=== PATIENT | female | born 1940 | race Caucasian/White ===

== ENCOUNTER 2021-12-25 11:33 | Emergency (ER) | payer MEDICARE, OTHER, SELFPAY ==
[2021-12-25] VITALS (20 sets, daily range): BP systolic 99–122; BP diastolic 44–62; PULSE 54–78; RESP 18; TEMP 36.3; O2SAT 87–100; BMI 20.1
--- NOTE | 2021-12-25 12:22 | CRLHL7_ITS ---
For Patients: As a result of the Cures Act, medical imaging exams and procedure reports are released immediately into your electronic medical record. You may view this report before your referring provider. If you have questions, please contact your health care provider. INDICATION: Pneumonia COMPARISON: None TECHNIQUE: Single-view study FINDINGS: TUBES AND LINES: PICC line ending in the distal SVC. HEART AND MEDIASTINUM: Heart size normal. Slight leftward shift due to volume loss on the left. LUNGS AND PLEURAL SPACES: Masslike consolidation laterally in the left upper lobe as well as diffuse airspace opacity elsewhere in the left lung. This could be inflammatory, neoplastic or related to treated malignancy.The masslike opacity abuts the left pleural surface.No definite abnormality on the right OSSEOUS STRUCTURES: No definite bone destruction IMPRESSION: Masslike consolidation laterally in the left upper lobe abutting the left pleural surface. There is also diffuse airspace disease elsewhere in the left lung. This could be inflammatory, neoplastic or related to treated malignancy. No definite abnormality on the right. Dictated by Simon Anguiano MD @ 12/25/2021 1:39:22 PM (Electronically Signed)
--- NOTE | 2021-12-25 12:26 | ED.GENADULT ---
HPI - General Adult General Chief complaint: Nausea/Vomiting Stated complaint: From [facility] Time Seen by Provider: 12/25/21 11:56 History of Present Illness HPI narrative: 81-year-old woman presenting to the emergency department on recommendation from [facility] where she has been receiving an infusion for pneumonia of Ertapenem. Apparently has been treating this for 2 weeks now. Has been struggling with pneumonia for 2 months. Son went got her and brought her from [place]. I ask about edema and apparently that has improved markedly since receiving further cares here. She has not had a recent fever. Is not coughing. Is on oxygen and has a concentrator here. Last night started vomiting and says that that quit around 3:00 a.m. it is 12 30 in the afternoon now. Is not having any pain really although had been experiencing pain in left upper quadrant around the time of vomiting. Major complaint really seems to be that she is feeling quite weak. Per her son blood pressures at [facility] were 90/40. She is in the 1 teens systolic here with good map. Related Data Home Medications Medication Instructions Recorded Confirmed Lactobacillus acidophilus 10 mg PO DAILY 12/23/21 12/28/21 acetaminophen 500 mg capsule 500 mg PO Q6H PRN 12/23/21 12/28/21 albuterol 90 mcg/actuation aerosol 108 mcg inhalation Q4H 12/23/21 12/28/21 inhaler ascorbic acid (vitamin C) 500 mg 500 mg PO DAILY 12/23/21 12/28/21 capsule,extended release atorvastatin 40 mg tablet 40 mg PO QHS 12/23/21 12/28/21 calcium carbonate 600 mg calcium 600 mg PO DAILY 12/23/21 12/28/21 (1,500 mg) tablet cetirizine 10 mg capsule (All Day 10 mg PO DAILY PRN 12/23/21 12/28/21 Allergy (cetirizine)) cholecalciferol (vitamin D3) 25 25 mcg PO DAILY 12/23/21 12/28/21 mcg (1,000 unit) capsule ferrous sulfate 325 mg (65 mg 325 mg PO DAILY 12/23/21 12/28/21 iron) tablet fluoxetine 20 mg capsule 20 mg PO DAILY 12/23/21 12/28/21 fluticasone 250 mcg-salmeterol 50 1 inh inhalation BID 12/23/21 12/28/21 mcg/dose blistr powdr for inhalation (Advair Diskus) furosemide 20 mg tablet 20 mg PO DAILY 12/23/21 12/28/21 ipratropium 0.5 mg-albuterol 3 mg 3 ml inhalation QID PRN 12/23/21 12/28/21 (2.5 mg base)/3 mL nebulization soln melatonin 3 mg capsule 3 mg PO HS PRN 12/23/21 12/28/21 montelukast 10 mg tablet 10 mg PO DAILY 12/23/21 12/28/21 aspirin 81 mg tablet,delayed 81 mg PO DAILY 12/29/21 12/29/21 release (Adult Aspirin Regimen) potassium chloride 20 mEq 40 meq PO DAILY 12/29/21 12/29/21 tablet,extended release prednisone 10 mg tablet 10 mg PO DAILY 12/29/21 12/29/21 Previous Rx's Medication Instructions Recorded ertapenem 1 gram solution for 1 g IVPB Q24H 10 days #10 ea 12/31/21 injection omeprazole 20 mg capsule,delayed 20 mg PO DAILY #30 caps 12/31/21 release prednisone 20 mg tablet 40 mg PO DAILYWM #6 tabs 12/31/21 sodium chloride 0.9 % (flush) 5 ml IVF .FLUSH PRN 10 days #20 mL 12/31/21 (Normal Saline Flush 0.9 % injection syringe) Allergies Allergy/AdvReac Type Severity Reaction Status Date / Time levofloxacin Allergy Severe Anaphylaxis Verified 12/29/21 14:17 azithromycin Allergy Unknown Verified 12/28/21 19:52 Penicillins Allergy Unknown Verified 12/28/21 19:52 Sulfa (Sulfonamide Allergy Unknown Verified 12/28/21 19:52 Antibiotics) [facility] Medical History (Updated 01/02/22 @ 00:01 by ) ASCVD (arteriosclerotic cardiovascular disease) BCC (basal cell carcinoma) Carpal tunnel syndrome of left wrist CKD (chronic kidney disease) stage 3, GFR 30-59 ml/min COPD (chronic obstructive pulmonary disease) Cyst of kidney, acquired De Quervain's syndrome (tenosynovitis) Diarrhea DVT (deep venous thrombosis) Empyema lung Folliculitis Frequent falls Gastritis HCAP (healthcare-associated pneumonia) Hyperlipidemia Hypertension Lesion of left ulnar nerve Macrocytic anemia Multiple rib fractures On home oxygen therapy Peripheral vascular disease Pneumonia Precancerous lesion Pulmonary nodule Raynaud disease Rotator cuff tear Strep throat Subclavian artery stenosis, left Thyroid nodule Vomiting Weakness Surgical History (Updated 12/29/21 @ 14:25 by Maylin Dale MD) H/O colonoscopy H/O shoulder surgery H/O: hysterectomy History of coronary angioplasty with insertion of stent History of tonsillectomy Hx of appendectomy Previous back surgery Family History (Updated 12/29/21 @ 14:26 by Maylin Dale MD) Sister Cancer Diabetes Social History (Updated 12/28/21 @ 21:56 by Yolis Sharp MD) Smoking Status: Former smoker What tobacco products do you use: cigarettes Smoking quit date/years: >15 years ago Do you use any of these nicotine containing products: None Second hand tobacco smoke exposure: No How often do you have a drink containing alcohol: never How often do you have six or more drinks on one occasion: Never AUDIT-C Alcohol total score: 0 Non-prescribed substance use: denies use Caffeine: Yes (1-2 cups coffee daily) service: No Exam Narrative: Exam Narrative: Pleasant. NAD. Does not appear to be in any particular distress. Conversing easily. Breathing easily. Lungs there though have crepitus through the bilateral mid and lower lung romero. Lower extremities are with some degree of compression stockings are without edema. PICC line in the right arm without surrounding inflammatory changes or swelling. Appears to be moving all extremities without difficulty. No focal weakness. Is a little weak though to sit needing some assistance into position. Able to hold herself sitting. Cardiovascular with on this lower end of regular rate and rhythm. I would not have thought her to be bradycardic on my exam. Abdomen is protuberant soft and nontender. Normoactive bowel sounds. Const: Vital Signs, click to edit/add: Vital Signs - 24 hr 12/25/21 11:50 12/25/21 12:22 12/25/21 13:03 Temperature 97.4 F L Pulse Rate 55 L Pulse Rate [Right Pulse Oximeter] 57 L Respiratory Rate 18 Blood Pressure Blood Pressure [Le ft Upper Arm] 113/47 L Pulse Oximetry 100 98 98 Oxygen Delivery Me thod Nasal Cannula Nasal Cannula Oxygen Flow Rate 4 2 12/25/21 13:05 12/25/21 12:30 12/25/21 13:06 Temperature Pulse Rate 62 57 L Pulse Rate [Right Pulse Oximeter] Respiratory Rate Blood Pressure 104/44 L Blood Pressure [Le ft Upper Arm] Pulse Oximetry 99 98 99 Oxygen Delivery Me thod Nasal Cannula Nasal Cannula Nasal Cannula Oxygen Flow Rate 2 2 2 12/25/21 13:30 12/25/21 13:31 12/25/21 13:32 Temperature Pulse Rate 56 L 57 L 58 L Pulse Rate [Right Pulse Oximeter] Respiratory Rate Blood Pressure 99/54 L Blood Pressure [Le ft Upper Arm] Pulse Oximetry 100 100 100 Oxygen Delivery Me thod Nasal Cannula Nasal Cannula Nasal Cannula Oxygen Flow Rate 2 2 2 12/25/21 14:05 12/25/21 14:06 12/25/21 14:30 Temperature Pulse Rate 60 60 55 L Pulse Rate [Right Pulse Oximeter] Respiratory Rate Blood Pressure 122/52 L Blood Pressure [Le ft Upper Arm] Pulse Oximetry 87 L 92 98 Oxygen Delivery Me thod Nasal Cannula Nasal Cannula Nasal Cannula Oxygen Flow Rate 2 2 2 12/25/21 14:32 12/25/21 14:33 12/25/21 15:00 Temperature Pulse Rate 65 69 59 L Pulse Rate [Right Pulse Oximeter] Respiratory Rate Blood Pressure 104/62 Blood Pressure [Le ft Upper Arm] Pulse Oximetry 99 98 96 Oxygen Delivery Me thod Nasal Cannula Nasal Cannula Nasal Cannula Oxygen Flow Rate 2 2 2 12/25/21 15:02 12/25/21 15:03 12/25/21 15:30 Temperature Pulse Rate 59 L 60 78 Pulse Rate [Right Pulse Oximeter] Respiratory Rate Blood Pressure 122/48 L Blood Pressure [Le ft Upper Arm] Pulse Oximetry 97 94 94 Oxygen Delivery Me thod Nasal Cannula Nasal Cannula Nasal Cannula Oxygen Flow Rate 2 2 2 12/25/21 15:31 12/25/21 15:32 Temperature Pulse Rate 54 L 59 L Pulse Rate [Right Pulse Oximeter] Respiratory Rate Blood Pressure 110/56 L Blood Pressure [Le ft Upper Arm] Pulse Oximetry 95 95 Oxygen Delivery Me thod Nasal Cannula Nasal Cannula Oxygen Flow Rate 2 2 Documenting provider has reviewed patient's vital signs: yes Course Course Hospital Course: Hydrated. Labs reviewed. No further episodes of vomiting no pain complaints. Did want her nebulization but prior to getting equipment here in the emergency department, was requesting departure. Has been vitally well. Looks to have good energy. Wants to go home. Consultations Consultation #1: I did discuss with [facility] events of this morning. Blood pressures admittedly were little soft but not necessarily unusual or for off baseline. Was concerning was the pain along with weakness and renewed coughing and vomiting; newly the constellation of symptoms as well as son being quite concerned. Did not feel could address all these matters in [facility]. Noted also that it has been sometime since she had her blood drawn. Vital Signs Vital signs: Initial Vital Signs Temperature 97.4 F L 12/25/21 11:50 Temperature Source Temporal Artery Scan 12/25/21 11:50 Pulse Rate 57 L 12/25/21 11:50 Pulse Rhythm 12/25/21 11:50 Respiratory Rate 18 12/25/21 11:50 Blood Pressure 113/47 L 12/25/21 11:50 Blood Pressure Mean 69 12/25/21 11:50 Blood Pressure Position Supine 12/25/21 11:50 Pulse Oximetry 100 12/25/21 11:50 Oxygen Delivery Method 12/25/21 11:50 Oxygen Flow Rate 4 12/25/21 11:50 Vital Signs Temperature 97.4 F L 12/25/21 11:50 Pulse Rate 57 L 12/25/21 11:50 Respiratory Rate 18 12/25/21 11:50 Blood Pressure 113/47 L 12/25/21 11:50 Pulse Oximetry 100 12/25/21 11:50 Oxygen Delivery Method 12/25/21 11:50 Oxygen Flow Rate 4 12/25/21 11:50 Temperature 97.4 F L 12/25/21 11:50 Pulse Rate 59 L 12/25/21 15:32 Respiratory Rate 18 12/25/21 11:50 Blood Pressure 110/56 L 12/25/21 15:31 Pulse Oximetry 95 12/25/21 15:32 Oxygen Delivery Method 12/25/21 15:32 Oxygen Flow Rate 2 12/25/21 15:32 Medical Decision Making MDM Narrative Medical decision making narrative: Clinically improved. Vitals have been good and stable. Really overall looks quite good. Chest x-ray concerning but around the time of departure was able to review CT imaging dated 12/11/2021 and the consolidation is noted in left upper lobe and that I think correlates with mass as noted on chest x-ray. Lab Data Lab results reviewed: Yes I reviewed the patient's lab results Labs: Lab Results 12/25/21 12/25/2122 Range/Units 12:23 12:45 12:45 WBC 10.57 (4.50-11.00) K/uL RBC 3.18 L (4.00-5.20) m/uL Hgb 9.4 L (12.0-16.0) gm/dL Hct 31.8 L (33.0-51.0) % MCV 100 (80-100) fL MCH 30 (26-34) pg MCHC 30 L (32-36) gm/dL RDW Coeff of Azar 20.6 H (11.5-15.5) % Plt Count 242 (140-440) K/uL Neut % (Auto) 77.2 H (42.0-72.0) % Lymph % (Auto) 13.8 L (20-44) % Antelope % (Auto) 7.8 (0.0-11.0) % Eos % (Auto) 0.6 (0.0-7.0) % Baso % (Auto) 0.4 (0.0-3.0) % Neut # (Auto) 8.20 H (1.7-7.0) K/uL Lymph # (Auto) 1.50 (0.90-2.90) K/uL Antelope # (Auto) 0.80 (0.00-0.90) K/UL Eos # (Auto) 0.06 (0.00-0.50) K/uL Baso # (Auto) 0.04 (0.00-0.30) K/uL Abs Immat Gran (auto) 0.02 (0.00-0.30) K/uL Imm/Tot Granulo (auto) 0.2 % Diff Slide Review Acceptable Review (Acceptable) VBG pH (7.32-7.43) VBG pCO2 (40-50) mmHG VBG pO2 (25-47) mmHG VBG HCO3 (21-28) mmol/L Sodium 143 (135-149) mmol/L Potassium 5.3 H (3.6-5.1) mmol/L Chloride 109 (96-114) mmol/L Carbon Dioxide 28 (20-32) mmol/L BUN 44 H (7-30) mg/dL Creatinine 1.1 (0.5-1.5) mg/dL Estimated Creat Clear 31.06 Estimated GFR 50 ml/min Glucose 97 (60-115) mg/dL Calcium 9.2 (8.4-10.6) mg/dL Troponin I (0.01-0.04) ng/mL C-Reactive Protein 2.4 H (0.5-1.0) mg/dL NT-Pro-B Natriuret Pep (0-450) PG/mL Lipase (23-300) U/L Urine Color (Yellow) Urine Appearance (Clear) Urine pH (5.0-8.5) Ur Specific [place] (1.000-1.030) Urine Protein (Negative) Urine Glucose (UA) (Negative) Urine Ketones (Negative) Urine Blood (Negative) Urine Nitrite (Negative) Urine Bilirubin (Negative) Urine Urobilinogen (0.2-1.0) Ur Leukocyte Esterase (Negative) Urine RBC (0-2) Urine WBC (0-5) Urine WBC Clumps (None) Ur Squamous Epith Cells (None-Few) Urine Bacteria (None) SARS-CoV-2 (PCR) (Negative) Influenza Type A (PCR) (Negative) Influenza Type B (PCR) (Negative) RSV (PCR) (Negative) POC Troponin I 0.00 L (0.01-0.04) ng/ml 12/25/21 12/25/21 12/25/21 Range/Units 12:45 12:45 12:50 WBC (4.50-11.00) K/uL RBC (4.00-5.20) m/uL Hgb (12.0-16.0) gm/dL Hct (33.0-51.0) % MCV (80-100) fL MCH (26-34) pg MCHC (32-36) gm/dL RDW Coeff of Azar (11.5-15.5) % Plt Count (140-440) K/uL Neut % (Auto) (42.0-72.0) % Lymph % (Auto) (20-44) % Antelope % (Auto) (0.0-11.0) % Eos % (Auto) (0.0-7.0) % Baso % (Auto) (0.0-3.0) % Neut # (Auto) (1.7-7.0) K/uL Lymph # (Auto) (0.90-2.90) K/uL Antelope # (Auto) (0.00-0.90) K/UL Eos # (Auto) (0.00-0.50) K/uL Baso # (Auto) (0.00-0.30) K/uL Abs Immat Gran (auto) (0.00-0.30) K/uL Imm/Tot Granulo (auto) % Diff Slide Review (Acceptable) VBG pH 7.394 (7.32-7.43) VBG pCO2 47 (40-50) mmHG VBG pO2 67.5 H (25-47) mmHG VBG HCO3 28 (21-28) mmol/L Sodium (135-149) mmol/L Potassium (3.6-5.1) mmol/L Chloride (96-114) mmol/L Carbon Dioxide (20-32) mmol/L BUN (7-30) mg/dL Creatinine (0.5-1.5) mg/dL Estimated Creat Clear Estimated GFR ml/min Glucose (60-115) mg/dL Calcium (8.4-10.6) mg/dL Troponin I < 0.01 L (0.01-0.04) ng/mL C-Reactive Protein (0.5-1.0) mg/dL NT-Pro-B Natriuret Pep 676 H (0-450) PG/mL Lipase 42 (23-300) U/L Urine Color (Yellow) Urine Appearance (Clear) Urine pH (5.0-8.5) Ur Specific [place] (1.000-1.030) Urine Protein (Negative) Urine Glucose (UA) (Negative) Urine Ketones (Negative) Urine Blood (Negative) Urine Nitrite (Negative) Urine Bilirubin (Negative) Urine Urobilinogen (0.2-1.0) Ur Leukocyte Esterase (Negative) Urine RBC (0-2) Urine WBC (0-5) Urine WBC Clumps (None) Ur Squamous Epith Cells (None-Few) Urine Bacteria (None) SARS-CoV-2 (PCR) Negative SARS-CoV-2 (Negative) Influenza Type A (PCR) Negative PCR FLU A (Negative) Influenza Type B (PCR) Negative PCR FLU B (Negative) RSV (PCR) Negative PCR RSV (Negative) POC Troponin I (0.01-0.04) ng/ml 12/25/21 Range/Units 14:05 WBC (4.50-11.00) K/uL RBC (4.00-5.20) m/uL Hgb (12.0-16.0) gm/dL Hct (33.0-51.0) % MCV (80-100) fL MCH (26-34) pg MCHC (32-36) gm/dL RDW Coeff of Azar (11.5-15.5) % Plt Count (140-440) K/uL Neut % (Auto) (42.0-72.0) % Lymph % (Auto) (20-44) % Antelope % (Auto) (0.0-11.0) % Eos % (Auto) (0.0-7.0) % Baso % (Auto) (0.0-3.0) % Neut # (Auto) (1.7-7.0) K/uL Lymph # (Auto) (0.90-2.90) K/uL Antelope # (Auto) (0.00-0.90) K/UL Eos # (Auto) (0.00-0.50) K/uL Baso # (Auto) (0.00-0.30) K/uL Abs Immat Gran (auto) (0.00-0.30) K/uL Imm/Tot Granulo (auto) % Diff Slide Review (Acceptable) VBG pH (7.32-7.43) VBG pCO2 (40-50) mmHG VBG pO2 (25-47) mmHG VBG HCO3 (21-28) mmol/L Sodium (135-149) mmol/L Potassium (3.6-5.1) mmol/L Chloride (96-114) mmol/L Carbon Dioxide (20-32) mmol/L BUN (7-30) mg/dL Creatinine (0.5-1.5) mg/dL Estimated Creat Clear Estimated GFR ml/min Glucose (60-115) mg/dL Calcium (8.4-10.6) mg/dL Troponin I (0.01-0.04) ng/mL C-Reactive Protein (0.5-1.0) mg/dL NT-Pro-B Natriuret Pep (0-450) PG/mL Lipase (23-300) U/L Urine Color Yellow (Yellow) Urine Appearance Clear (Clear) Urine pH 5.0 (5.0-8.5) Ur Specific [place] 1.020 (1.000-1.030) Urine Protein Trace A (Negative) Urine Glucose (UA) Negative (Negative) Urine Ketones Negative (Negative) Urine Blood Negative (Negative) Urine Nitrite Negative (Negative) Urine Bilirubin Negative (Negative) Urine Urobilinogen 0.2 (0.2-1.0) Ur Leukocyte Esterase Negative (Negative) Urine RBC 0-2 (0-2) Urine WBC 0-2 (0-5) Urine WBC Clumps None (None) Ur Squamous Epith Cells None (None-Few) Urine Bacteria None (None) SARS-CoV-2 (PCR) (Negative) Influenza Type A (PCR) (Negative) Influenza Type B (PCR) (Negative) RSV (PCR) (Negative) POC Troponin I (0.01-0.04) ng/ml Discharge Plan Discharge Clinical Impression: Gastritis, Weakness, Pneumonia Patient Disposition: Home w/ Parent or Adult Condition: Improved Additional Instructions: Continue to focus on hydration. Rest. Do one of those nebulizer treatments when you had home; imagine you were going to anyway. Return as needed and for Infusion tomorrow. Follow-up on Thursday in clinic as planned/scheduled. Zofran for nausea/vomiting from [facility] if you want. Prescriptions: No Action acetaminophen 500 mg capsule 500 mg PO Q6H PRN All Day Allergy (cetirizine) 10 mg capsule 10 mg PO DAILY PRN ferrous sulfate 325 mg (65 mg iron) tablet 325 mg PO DAILY furosemide 20 mg tablet 20 mg PO DAILY albuterol 90 mcg/actuation aerosol 108 mcg inhalation Q4H atorvastatin 40 mg tablet 40 mg PO QHS calcium carbonate 600 mg calcium (1,500 mg) tablet 600 mg PO DAILY fluoxetine 20 mg capsule 20 mg PO DAILY fluticasone propion-salmeterol [Advair Diskus] 250-50 mcg/dose blister with device 1 inh inhalation BID ipratropium-albuterol 0.5 mg-3 mg(2.5 mg base)/3 mL solution for nebulization 3 ml inhalation QID PRN Lactobacillus acidophilus Capsule 10 mg PO DAILY melatonin 3 mg capsule 3 mg PO HS PRN montelukast 10 mg tablet 10 mg PO DAILY ascorbic acid (vitamin C) 500 mg capsule, extended release 500 mg PO DAILY cholecalciferol (vitamin D3) 25 mcg (1,000 unit) capsule 25 mcg PO DAILY potassium chloride 20 mEq tablet extended release 40 meq PO DAILY aspirin [Adult Aspirin Regimen] 81 mg tablet,delayed release (DR/EC) 81 mg PO DAILY prednisone 10 mg tablet 10 mg PO DAILY Hold Instructions: Resume on 01/04/22. ertapenem 1 gram Recon Soln 1 g IVPB Q24H 10 Days Qty: 10 0RF sodium chloride 0.9 % (flush) [Normal Saline Flush] Syringe 5 ml IVF .FLUSH PRN10 Days Qty: 20 0RF omeprazole 20 mg capsule,delayed release(DR/EC) 20 mg PO DAILY Qty: 30 2RF prednisone 20 mg Tablet 40 mg PO DAILYWM Qty: 6 0RF Follow Up/Referrals: Provider,Not a Local [Primary Care Provider] - Stand Alone Forms: [facility] Info Instructions
--- NOTE | 2021-12-25 12:30 | ED.NURSE ---
Pt requesting to use wall O2 since her home portable O2 machine was low. Pt placed on ER wall O2 at 2L NC.
[2021-12-25 12:58] LABS: HCO3 VBG 28 mmol/L (21-28); PCO2 VBG 47 mmHG (40-50); PO2 VBG 67.5 mmHG (25-47); pH VBG 7.394 (7.32-7.43)
[2021-12-25 13:03] LABS: Basophils Absolute Auto 0.04 K/uL (0.00-0.30); Basophils Percent Auto 0.4 % (0.0-3.0); Eosinophils Absolute Auto 0.06 K/uL (0.00-0.50); Eosinophils Percent Auto 0.6 % (0.0-7.0); Hematocrit 31.8 % (33.0-51.0); Hemoglobin* 9.4 gm/dL (12.0-16.0); Immature Granulocytes Abs Auto 0.02 K/uL (0.00-0.30); Immature Granulocytes Pct Auto 0.2 %; Lymphocytes Percent Auto 13.8 % (20-44); Mean Corpuscular HGB Conc 30 gm/dL (32-36); Mean Corpuscular Hemoglobin 30 pg (26-34); Mean Corpuscular Volume 100 fL (80-100); Monocytes Percent Auto 7.8 % (0.0-11.0); Neutrophils Percent Auto 77.2 % (42.0-72.0); Platelet Count* 242 K/uL (140-440); RDW Coefficient of Variation % 20.6 % (11.5-15.5); Red Blood Count 3.18 m/uL (4.00-5.20); White Blood Count* 10.57 K/uL (4.50-11.00)
[2021-12-25] MEDS: 0.9 % SODIUM CHLORIDE 1000 ml 1,000 ML IV (13:05)
[2021-12-25 13:16] LABS: Chloride* 109 mmol/L (96-114)
[2021-12-25 13:17] LABS: Potassium* 5.3 mmol/L (3.6-5.1); Sodium* 143 mmol/L (135-149)
[2021-12-25 13:19] LABS: Creatinine* 1.1 mg/dL (0.5-1.5); Est. Creatinine Clearance* 31.06; Estimated Glomerular Filt Rate 50 ml/min; Lipase* 42 U/L (23-300)
[2021-12-25 13:20] LABS: Blood Urea Nitrogen* 44 mg/dL (7-30); Carbon Dioxide* 28 mmol/L (20-32); Glucose* 97 mg/dL (60-115)
[2021-12-25 13:21] LABS: Calcium* 9.2 mg/dL (8.4-10.6)
[2021-12-25 13:22] LABS: Slide Review Reflex Yes
[2021-12-25 13:23] LABS: C Reactive Protein* 2.4 mg/dL (0.5-1.0)
[2021-12-25 13:28] LABS: NT Pro B Type NatriureticPept* 676 PG/mL (0-450)
[2021-12-25 13:34] LABS: Slide Review Acceptable Review (Acceptable)
[2021-12-25 13:39] LABS: PCR FLU A Negative PCR FLU A (Negative); PCR FLU B Negative PCR FLU B (Negative); PCR RSV Negative PCR RSV (Negative)
[2021-12-25 13:44] LABS: Troponin I* < 0.01 ng/mL (0.01-0.04)
[2021-12-25 13:55] LABS: SARS PCR* Negative SARS-CoV-2 (Negative)
[2021-12-25 14:26] LABS: Appearance Urine Clear (Clear); Bilirubin Urine Negative (Negative); Blood Urine Negative (Negative); Color Urine Yellow (Yellow); Glucose Urine Negative (Negative); Ketones Urine Negative (Negative); Leukocyte Esterase Urine Negative (Negative); Nitrite Urine Negative (Negative); Protein Urine Trace (Negative); Urobilinogen Urine 0.2 (0.2-1.0)
[2021-12-25 15:05] LABS: RBC Urine 0-2 (0-2); WBC Urine 0-2 (0-5)
== END 2021-12-25 16:10 | disposition home or self-care (01) ==
PROVIDERS: Emergency Provider Family Medicine
DX: K29.70 Gastritis, unspecified, without bleeding (principal); J18.9 Pneumonia, unspecified organism
CPT/HCPCS: 36415; 71045; 80048; 81001; 82803; 83690; 83880; 84484; 85025; 86140; 87040; 87502; 87634; 87635; 94761; 96365; 99284; 99285; J1335; J7030

== ENCOUNTER 2021-12-28 18:12 | Observation (INO) | payer MEDICARE, OTHER, SELFPAY ==
[2021-12-28 18:39] VITALS: BP 118/62; PULSE 72; RESP 18; TEMP 36.6; O2SAT 98; BMI 21.9
--- NOTE | 2021-12-28 19:20 | CRLHL7_ITS ---
For Patients: As a result of the Century Cures Act, medical imaging exams and procedure reports are released immediately into your electronic medical record. You may view this report before your referring provider. If you have questions, please contact your health care provider. INDICATION: Right rib pain after fall, vomiting, recent pneumonia. TECHNIQUE: CT chest was acquired with 75 cc Isovue 370 IV contrast. COMPARISON: Chest radiograph from 12/25/2021. FINDINGS: Lungs and pleura: Severe bilateral centrilobular emphysema. The right lung is hyperexpanded, but otherwise clear without suspicious nodule. There is near circumferential pleural thickening of the left upper lobe with peripheral consolidation and interior ground-glass, presumably secondary to previous treatment. Left lower lobe atelectasis. No pneumothorax. Heart and vasculature: Heart size is normal. Thoracic aorta and pulmonary artery are normal in caliber.No pulmonary embolism. No pericardial effusion. Coronary artery and thoracic aorta atherosclerotic calcification. Lymph nodes/mediastinum: No mediastinal, hilar, or axillary adenopathy. Moderate sized hiatal hernia. There is mid esophageal mural thickening with surrounding inflammatory stranding and air fluid level is noted in the proximal esophagus. Chest wall: No masses. Thyroid: 1.2 cm right thyroid nodule. Upper abdomen: Unremarkable. Bones: Right humeral head soft tissue anchors. Acute nondisplaced right anterior 8th and 9th rib fractures. Otherwise the for age. IMPRESSION: Acute nondisplaced right anterior 8th and 9th rib fractures. No pneumothorax. Consolidation and ground-glass in the left upper lobe with volume loss, likely posttreatment changes. Difficult to exclude superimposed infection in the correct clinical setting. Mid esophageal mural thickening with surrounding inflammation, compatible with esophagitis, possibly secondary to recent vomiting. Small air-fluid level in the proximal esophagus puts the patient at increased risk for aspiration. 1.2 cm right thyroid nodule. Recommend routine thyroid ultrasound for further evaluation, if not previously performed. Please note that all CT scans at this facility use dose modulation, iterative reconstruction, and/or weight-based dosing when appropriate to reduce radiation dose to as low as reasonably achievable. Dictated by Carlos A Granados MD @ 12/28/2021 8:33:02 PM (Electronically Signed)
--- NOTE | 2021-12-28 19:39 | ED_ITS ---
HPI - General Adult General Date Seen: 12/28/21 Chief complaint: Nausea/Vomiting Stated complaint: Vomiting Low BP Time Seen by Provider: 12/28/21 18:39 Source: patient and family History of Present Illness HPI narrative: Patient is an 81-year-old woman brought in by her son and his significant other for evaluation of ongoing vomiting. [facility] which I do not remember. She was just discharged from a swing bed in that smaller town on December 18. She was discharged from there on the condition that she have a plan in place for continued IV antibiotic infusion for 4 additional weeks, which she started here at our [facility] on December 19. She was seen here on November 24 for vomiting. The family member who is with her repor ts that she has been having difficulties on and off with vomiting for the past week and half for so. She says that for the past day and half things have been worse with nearly constant vomiting. The patient herself says that she feels like there is something stuck in her throat at the level of the suprasternal notch. She denies other chest pain and is not having significant difficulty breathing. She has not had fevers. She has had a little diarrhea but she says she believes that is due to the antibiotics. No bloody stools. She has not had abdominal pain. She has had increasing weakness and her family member says that she had multiple falls in the past couple of days. She did have an injury to her right flank yesterday and has some pain in her right ribcage subsequently. She has not had any urinary symptoms. She denies head or neck injury. She was on Coumadin during her hospital stay but says that she has discontinued that now it is just taking aspirin. She says that in the 1969's she had blood clot after surgery, but she does not take blood thinners in general aside from aspirin. She noted that her son was told that there was a ?mass in the chest that was mentioned to them subsequent to discharged that was seen on her CT scan, but further clarification of this is that it was a small nodule seen in the thyroid that required follow-up. They have limited information regarding her hospitalization aside from the fact that she had chest tubes, was treated for a pneumonia, and is to have for additional weeks of IV antibiotics. They do not have any paperwork or records from her hospital stays. She tells me she has a history of hypertension and sees a kidney specialist but she does not know why she sees a kidney specialist. She does not smoke nor does she drink. Lives independently prior to this. She is now staying with her son. Related Data Home Medications Medication Instructions Recorded Confirmed Lactobacillus acidophilus 10 mg PO DAILY 12/23/21 12/28/21 acetaminophen 500 mg capsule 500 mg PO Q6H PRN 12/23/21 12/28/21 albuterol 90 mcg/actuation aerosol 108 mcg inhalation Q4H 12/23/21 12/28/21 inhaler ascorbic acid (vitamin C) 500 mg 500 mg PO DAILY 12/23/21 12/28/21 capsule,extended release atenolol 50 mg tablet 50 mg PO DAILY 12/23/21 12/28/21 atorvastatin 40 mg tablet 40 mg PO QHS 12/23/21 12/28/21 calcium carbonate 600 mg calcium 600 mg PO DAILY 12/23/21 12/28/21 (1,500 mg) tablet calcium carbonate 600 mg-vitamin 1 cap PO DAILY 12/23/21 12/28/21 D3 10 mcg (400 unit) capsule cetirizine 10 mg capsule (All Day 10 mg PO DAILY PRN 12/23/21 12/28/21 Allergy (cetirizine)) cholecalciferol (vitamin D3) 25 25 mcg PO DAILY 12/23/21 12/28/21 mcg (1,000 unit) capsule ferrous sulfate 325 mg (65 mg 325 mg PO DAILY 12/23/21 12/28/21 iron) tablet fluoxetine 20 mg capsule 20 mg PO DAILY 12/23/21 12/28/21 fluticasone 250 mcg-salmeterol 50 1 inh inhalation BID 12/23/21 12/28/21 mcg/dose blistr powdr for inhalation (Advair Diskus) furosemide 20 mg tablet 20 mg PO DAILY 12/23/21 12/28/21 ipratropium 0.5 mg-albuterol 3 mg 3 ml inhalation QID PRN 12/23/21 12/28/21 (2.5 mg base)/3 mL nebulization soln lisinopril 20 mg tablet 20 mg PO DAILY 12/23/21 12/28/21 lorazepam 0.5 mg tablet 0.5 mg PO BID 12/23/21 12/28/21 melatonin 3 mg capsule 3 mg PO HS PRN 12/23/21 12/28/21 montelukast 10 mg tablet 10 mg PO DAILY 12/23/21 12/28/21 potassium chloride 40 mEq/15 mL 40 meq PO DAILY 12/23/21 12/28/21 oral liquid Allergies Allergy/AdvReac Type Severity Reaction Status Date / Time azithromycin Allergy Unknown Verified 12/28/21 19:52 levofloxacin Allergy Unknown Verified 12/28/21 19:52 Penicillins Allergy Unknown Verified 12/28/21 19:52 Sulfa (Sulfonamide Allergy Unknown Verified 12/28/21 19:52 Antibiotics) Review of Systems Status of ROS: Reports: 10 or more systems reviewed and unremarkable except as noted in History and below [facility] Social History Smoking Status: Former smoker What tobacco products do you use: cigarettes Smoking quit date/years: >15 years ago Do you use any of these nicotine containing products: None Second hand tobacco smoke exposure: No How often do you have a drink containing alcohol: never How often do you have six or more drinks on one occasion: Never AUDIT-C Alcohol total score: 0 Non-prescribed substance use: denies use Exam Narrative: Exam Narrative: Vital signs as noted above. In general, an alert, nontoxic elderly woman, she is lying on her left side. She spits fairly frequently into an emesis bag, she had 1 small emesis while I was in the room with her. Head: Normocephalic, atraumatic. Eyes: Pupils are equal reactive. Extraocular movements are full. Conjunctivae are normal. ENT: Mucous membranes are somewhat dry. Throat is normal. Neck: Supple without lymphadenopathy. No obvious masses. No stridor. Heart: Regular rate and rhythm. No murmur or rub. Lungs: Some crackles at the bases, decreased on the left. Tenderness in the right posterior chest, large bruise in the right flank. Abdomen: Soft and nontender. No organomegaly. Extremities: Well perfused. Edema in both feet which she says is baseline. No calf tenderness. Pulses intact. Neurologic: Patient is alert and oriented to person and place. Speech is fluent. Face is symmetric. Moves all extremities equally. Affect: Normal. Skin: Warm and dry. Well perfused. Const: Vital Signs, click to edit/add: Vital Signs - 24 hr 12/28/21 18:39 Temperature 97.8 F Pulse Rate [Pulse Oximeter] 72 Respiratory Rate 18 Blood Pressure [Le ft Upper Arm] 118/62 Pulse Oximetry 98 Oxygen Delivery Me thod Nasal Cannula Documenting provider has reviewed patient's vital signs: yes Course Course Hospital Course: Will attempt to get some records from [place] just to clarify exactly what happened during her hospital stay there. With regard to her vomiting, it is interesting to me that she does not seem to be effectively swallowing saliva. She is periodically spitting up saliva, and then had a small emesis. She does not describe having an event where she felt like she had a food bolus get stuck, and certainly the intermittent nature of her symptoms does not support that history. She denies a previous history of esophageal stricture. She has continued to have bowel movements, does not have abdominal pain. This isn't presenting like a bowel obstruction. The intermittent nature argues against this being an infectious gastroenteritis. For now I have ordered an EKG, basic labs. We will give her some fluids. Check orthostatic vital signs although she is not hypotensive at least at rest. She does have bruising and tenderness in the right chest, I am going to get a CT scan of the chest to recheck her pneumonia, evaluate the rib cage, and also try to evaluate esophagus for any evidence of clear stricture/dilation. Labs show a normal white blood cell count, hemoglobin is 8.5 down just a little bit from a couple days ago. Her platelets are normal. Metabolic panel is entirely normal, BUN and creatinine are 28 and 1.0. Blood sugars normal. Venous gas is unremarkable. CRP is elevated at 5.1. LFTs are normal. TSH is somewhat depressed at 0.116, free T4 is pending. Point of care troponin was not logged in the computer but was 0. I reviewed her CT scan. She does have a seemingly dilated esophagus with air-fluid level. Uncertain if this is significant or not but given her symptoms I do wonder if she might have achalasia. She did not have significant relief from her vomiting with Zofran, continues to spit up saliva. She does have 2 rib fractures. Final radiology report is as follows: IMPRESSION: Acute nondisplaced right anterior 8th and 9th rib fractures. No pneumothorax. Consolidation and ground-glass in the left upper lobe with volume loss, likely posttreatment changes. Difficult to exclude superimposed infection in the correct clinical setting. Mid esophageal mural thickening with surrounding inflammation, compatible with esophagitis, possibly secondary to recent vomiting. Small air-fluid level in the proximal esophagus puts the patient at increased risk for aspiration. 1.2 cm right thyroid nodule. Recommend routine thyroid ultrasound for further evaluation, if not previously performed. The thyroid nodule is known but has not been evaluated. Plan at this time is admission for management of her rib fractures, IV PPI for possible esophagitis, consideration of endoscopy for further evaluation of esophagitis verses esophageal dysmotility. Vital Signs Vital signs: Initial Vital Signs Temperature 97.8 F 12/28/21 18:39 Temperature Source Temporal Artery Scan 12/28/21 18:39 Pulse Rate 72 12/28/21 18:39 Respiratory Rate 18 12/28/21 18:39 Blood Pressure 118/62 12/28/21 18:39 Blood Pressure Mean 80 12/28/21 18:39 Blood Pressure Position Supine 12/28/21 18:39 Pulse Oximetry 98 12/28/21 18:39 Oxygen Delivery Method 12/28/21 18:39 Vital Signs Temperature 97.8 F 12/28/21 18:39 Pulse Rate 72 12/28/21 18:39 Respiratory Rate 18 12/28/21 18:39 Blood Pressure 118/62 12/28/21 18:39 Pulse Oximetry 98 12/28/21 18:39 Oxygen Delivery Method 12/28/21 18:39 Temperature 97.8 F 12/28/21 18:39 Pulse Rate 72 12/28/21 18:39 Respiratory Rate 18 12/28/21 18:39 Blood Pressure 118/62 12/28/21 18:39 Pulse Oximetry 98 12/28/21 18:39 Oxygen Delivery Method 12/28/21 18:39 Medical Decision Making Lab Data Labs: Lab Results 12/28/21 12/28/21 12/28/21 Range/Units 19:40 19:40 19:40 WBC 9.12 (4.50-11.00) K/uL RBC 2.85 L (4.00-5.20) m/uL Hgb 8.5 L (12.0-16.0) gm/dL Hct 29.2 L (33.0-51.0) % MCV 103 H (80-100) fL MCH 30 (26-34) pg MCHC 29 L (32-36) gm/dL RDW Coeff of Azar 20.2 H (11.5-15.5) % Plt Count 179 (140-440) K/uL Neut % (Auto) 82.1 H (42.0-72.0) % Lymph % (Auto) 10.1 L (20-44) % Winn % (Auto) 6.0 (0.0-11.0) % Eos % (Auto) 1.2 (0.0-7.0) % Baso % (Auto) 0.3 (0.0-3.0) % Neut # (Auto) 7.50 H (1.7-7.0) K/uL Lymph # (Auto) 0.90 (0.90-2.90) K/uL Winn # (Auto) 0.50 (0.00-0.90) K/UL Eos # (Auto) 0.11 (0.00-0.50) K/uL Baso # (Auto) 0.03 (0.00-0.30) K/uL Abs Immat Gran (auto) 0.03 (0.00-0.30) K/uL Imm/Tot Granulo (auto) 0.3 % INR 0.95 (0.91-1.10) VBG pH (7.32-7.43) VBG pCO2 (40-50) mmHG VBG pO2 (25-47) mmHG VBG HCO3 (21-28) mmol/L Sodium 141 (135-149) mmol/L Potassium 4.9 (3.6-5.1) mmol/L Chloride 113 (96-114) mmol/L Carbon Dioxide 24 (20-32) mmol/L BUN 28 (7-30) mg/dL Creatinine 1.0 (0.5-1.5) mg/dL Estimated Creat Clear 34.30 Estimated GFR 56 ml/min Glucose 108 (60-115) mg/dL Calcium 8.4 (8.4-10.6) mg/dL Total Bilirubin 0.5 (0.1-1.5) mg/dL Direct Bilirubin 0.2 (0.0-0.5) mg/dL AST 31 (12-35) U/L ALT 29 (4-35) U/L Alkaline Phosphatase 53 (40-150) U/L C-Reactive Protein 5.1 H (0.5-1.0) mg/dL Total Protein 6.1 (6.0-8.3) g/dL Albumin 3.3 (3.3-5.0) g/dL Lipase 26 (23-300) U/L TSH (0.270-4.200) uIU/mL 12/28/21 12/28/21 Range/Units 19:40 19:40 WBC (4.50-11.00) K/uL RBC (4.00-5.20) m/uL Hgb (12.0-16.0) gm/dL Hct (33.0-51.0) % MCV (80-100) fL MCH (26-34) pg MCHC (32-36) gm/dL RDW Coeff of Azar (11.5-15.5) % Plt Count (140-440) K/uL Neut % (Auto) (42.0-72.0) % Lymph % (Auto) (20-44) % Winn % (Auto) (0.0-11.0) % Eos % (Auto) (0.0-7.0) % Baso % (Auto) (0.0-3.0) % Neut # (Auto) (1.7-7.0) K/uL Lymph # (Auto) (0.90-2.90) K/uL Winn # (Auto) (0.00-0.90) K/UL Eos # (Auto) (0.00-0.50) K/uL Baso # (Auto) (0.00-0.30) K/uL Abs Immat Gran (auto) (0.00-0.30) K/uL Imm/Tot Granulo (auto) % INR (0.91-1.10) VBG pH 7.343 (7.32-7.43) VBG pCO2 47 (40-50) mmHG VBG pO2 76.0 H (25-47) mmHG VBG HCO3 25 (21-28) mmol/L Sodium (135-149) mmol/L Potassium (3.6-5.1) mmol/L Chloride (96-114) mmol/L Carbon Dioxide (20-32) mmol/L BUN (7-30) mg/dL Creatinine (0.5-1.5) mg/dL Estimated Creat Clear Estimated GFR ml/min Glucose (60-115) mg/dL Calcium (8.4-10.6) mg/dL Total Bilirubin (0.1-1.5) mg/dL Direct Bilirubin (0.0-0.5) mg/dL AST (12-35) U/L ALT (4-35) U/L Alkaline Phosphatase (40-150) U/L C-Reactive Protein (0.5-1.0) mg/dL Total Protein (6.0-8.3) g/dL Albumin (3.3-5.0) g/dL Lipase (23-300) U/L TSH 0.116 L (0.270-4.200) uIU/mL Discharge Plan Discharge Clinical Impression: Multiple rib fractures, Vomiting Patient Disposition: Admitted As Inpatient Condition: Stable
[2021-12-28] MEDS: ONDANSETRON 2 MG/ML inj 4 MG IVP (19:45)
[2021-12-28] MEDS: 0.9 % SODIUM CHLORIDE 1000 ml 1,000 ML IV (19:45)
[2021-12-28 20:00] LABS: HCO3 VBG 25 mmol/L (21-28); PCO2 VBG 47 mmHG (40-50); pH VBG 7.343 (7.32-7.43)
[2021-12-28 20:01] LABS: Basophils Absolute Auto 0.03 K/uL (0.00-0.30); Basophils Percent Auto 0.3 % (0.0-3.0); Eosinophils Absolute Auto 0.11 K/uL (0.00-0.50); Eosinophils Percent Auto 1.2 % (0.0-7.0); Hematocrit 29.2 % (33.0-51.0); Hemoglobin* 8.5 gm/dL (12.0-16.0); Immature Granulocytes Abs Auto 0.03 K/uL (0.00-0.30); Immature Granulocytes Pct Auto 0.3 %; Lymphocytes Percent Auto 10.1 % (20-44); Mean Corpuscular HGB Conc 29 gm/dL (32-36); Mean Corpuscular Hemoglobin 30 pg (26-34); Mean Corpuscular Volume 103 fL (80-100); Neutrophils Percent Auto 82.1 % (42.0-72.0); Platelet Count* 179 K/uL (140-440); RDW Coefficient of Variation % 20.2 % (11.5-15.5); Red Blood Count 2.85 m/uL (4.00-5.20); White Blood Count* 9.12 K/uL (4.50-11.00)
[2021-12-28 20:02] LABS: Slide Review Reflex No
[2021-12-28 20:30] LABS: Albumin* 3.3 g/dL (3.3-5.0); Chloride* 113 mmol/L (96-114); Sodium* 141 mmol/L (135-149)
[2021-12-28 20:31] LABS: Potassium* 4.9 mmol/L (3.6-5.1)
[2021-12-28 20:32] LABS: INR 0.95 (0.91-1.10); Prothrombin Time 13.3 Seconds
[2021-12-28 20:34] LABS: Alanine Aminotransferase* 29 U/L (4-35); Alkaline Phosphatase* 53 U/L (40-150); Aspartate Amino Transferase* 31 U/L (12-35); Bilirubin Direct* 0.2 mg/dL (0.0-0.5); Bilirubin Total* 0.5 mg/dL (0.1-1.5); Blood Urea Nitrogen* 28 mg/dL (7-30); Calcium* 8.4 mg/dL (8.4-10.6); Carbon Dioxide* 24 mmol/L (20-32); Estimated Glomerular Filt Rate 56 ml/min; Glucose* 108 mg/dL (60-115); Lipase* 26 U/L (23-300); Total Protein* 6.1 g/dL (6.0-8.3)
[2021-12-28 20:37] LABS: C Reactive Protein* 5.1 mg/dL (0.5-1.0)
[2021-12-28 21:05] LABS: TSH With Reflex to FT4* 0.116 uIU/mL (0.270-4.200)
--- NOTE | 2021-12-28 21:57 | P.IMHP_ITS ---
Hospitalist- H&P: HPI History of Present Illness Date Seen: 12/28/21 Chief complaint: Vomiting Low BP Narrative: Charu Barry is a 81 year old female who presented with her son to the emergency room this evening for concerns of weakness, fall with chest pain, intermittent vomiting and diarrhea, and weakness. Patient has fallen 7-8 times in the past 2-3 days. Falls are preceded by dizziness, no syncope. No chest pain or palpitations. No fevers. No coughing. No other signs or symptoms of illness. She has noted some intermittently dark stools, but believes that is from her iron supplementation. She has had no hematochezia or hematemesis. Prior to this week, wasn't falling at all. Yesterday, she fell in the bathroom onto her right side, and has had quite a bit of pain in that area. She has also noted intermittent vomiting, mild, and occasional diarrhea, mild. Denies any epigastric pain or burning. ER course and findings: - hemoglobin of 8.5 with MCV of 103 (hemoglobin was 9.4 on 12/25) - esophageal thickening noted on CT scan - incidental thyroid nodule Charu has a complicated medical history; unfortunately, we do not have many records with further details. She recently moved to the area after 3 lengthy hospital stays in [place], where she is from. She was recently hospitalized in [place], [place] and discharged on December 18, with orders to continue IV INR biotic therapy for 4 additional weeks for a pneumonia that was complicated by empyema formation, requiring chest tube placement. She has been receiving daily IV antibiotics at the hospital/[facility] via PICC line; did not mention her symptoms to the nurse this morning when she was here for her Ertapenem infusion, as she notes she was feeling quite good this morning (pain and weakness worsened later in the day). She has moved to the [facility] permanently, to be closer to family. Her grandson is in [place], and her son (who is present this evening), is working on moving to [place] from [place]. Patient is working on setting up a PCP in [place] through the [employer] system. She quit smoking remotely, No ETOH. She is retired. Lives in [facility] [facility], using a walker to ambulate. Patient's son will be medical decision maker if needed, she requests full code status. Review of Systems Status of ROS: Reports: 10 or more systems reviewed and unremarkable except as noted in History and below Narrative: Son notes that when patient walks, she often veers to the left. Patient doesn't notice this. Using a walker for ambulation. No jen blood in stool, has had some melena, but didn't notice this until she started her iron supplementation. [facility] Medical History (Updated 12/28/21 @ 23:50 by Christy Ward MD) BCC (basal cell carcinoma) Emphysema lung Macrocytic anemia Subclavian artery stenosis, left Thyroid nodule Surgical History (Updated 12/28/21 @ 23:22 by Christy Ward MD) H/O: hysterectomy Hx of appendectomy Social History (Updated 12/28/21 @ 21:56 by Yolis Sharp MD) Smoking Status: Former smoker What tobacco products do you use: cigarettes Smoking quit date/years: >15 years ago Do you use any of these nicotine containing products: None Second hand tobacco smoke exposure: No How often do you have a drink containing alcohol: never How often do you have six or more drinks on one occasion: Never AUDIT-C Alcohol total score: 0 Non-prescribed substance use: denies use Meds Home Medications and Allergies Home Medications Medication Instructions Recorded Confirmed Type Lactobacillus acidophilus 10 mg PO DAILY 12/23/21 12/28/21 History acetaminophen 500 mg capsule 500 mg PO Q6H PRN 12/23/21 12/28/21 History albuterol 90 mcg/actuation aerosol 108 mcg inhalation Q4H 12/23/21 12/28/21 History inhaler ascorbic acid (vitamin C) 500 mg 500 mg PO DAILY 12/23/21 12/28/21 History capsule,extended release atenolol 50 mg tablet 50 mg PO DAILY 12/23/21 12/28/21 History atorvastatin 40 mg tablet 40 mg PO QHS 12/23/21 12/28/21 History calcium carbonate 600 mg calcium 600 mg PO DAILY 12/23/21 12/28/21 History (1,500 mg) tablet calcium carbonate 600 mg-vitamin 1 cap PO DAILY 12/23/21 12/28/21 History D3 10 mcg (400 unit) capsule cetirizine 10 mg capsule (All Day 10 mg PO DAILY PRN 12/23/21 12/28/21 History Allergy (cetirizine)) cholecalciferol (vitamin D3) 25 25 mcg PO DAILY 12/23/21 12/28/21 History mcg (1,000 unit) capsule ferrous sulfate 325 mg (65 mg 325 mg PO DAILY 12/23/21 12/28/21 History iron) tablet fluoxetine 20 mg capsule 20 mg PO DAILY 12/23/21 12/28/21 History fluticasone 250 mcg-salmeterol 50 1 inh inhalation BID 12/23/21 12/28/21 History mcg/dose blistr powdr for inhalation (Advair Diskus) furosemide 20 mg tablet 20 mg PO DAILY 12/23/21 12/28/21 History ipratropium 0.5 mg-albuterol 3 mg 3 ml inhalation QID PRN 12/23/21 12/28/21 History (2.5 mg base)/3 mL nebulization soln lisinopril 20 mg tablet 20 mg PO DAILY 12/23/21 12/28/21 History lorazepam 0.5 mg tablet 0.5 mg PO BID 12/23/21 12/28/21 History melatonin 3 mg capsule 3 mg PO HS PRN 12/23/21 12/28/21 History montelukast 10 mg tablet 10 mg PO DAILY 12/23/21 12/28/21 History potassium chloride 40 mEq/15 mL 40 meq PO DAILY 12/23/21 12/28/21 History oral liquid Allergies Allergy/AdvReac Type Severity Reaction Status Date / Time azithromycin Allergy Unknown Verified 12/28/21 19:52 levofloxacin Allergy Unknown Verified 12/28/21 19:52 Penicillins Allergy Unknown Verified 12/28/21 19:52 Sulfa (Sulfonamide Allergy Unknown Verified 12/28/21 19:52 Antibiotics) Exam Narrative: Exam Narrative: GEN: Alert and oriented, laying comfortably in bed answering questions appropriately without tachypnea HEENT: Normal external ears, EOMIs bilaterally, no scleral icterus CV: RRR, No concerning murmurs, rubs, or gallops R: Decreased air movement bilaterally without concerning wheezes or crackles Ext: wwp, no concerning edema, wearing Brendon hose Skin: Dry flaky skin noted on neck and and ears bilaterally, right chest wall not formally examined secondary to patient discomfort. No other concerning findings on exposed skin Neuro: Nonfocal, no resting tremor, gait not observed Psych: Appropriate Const: Vital Signs, click to edit/add: Vital Signs - 24 hr 12/28/21 18:39 Temperature 97.8 F Pulse Rate [Pulse Oximeter] 72 Respiratory Rate 18 Blood Pressure [Le ft Upper Arm] 118/62 Pulse Oximetry 98 Oxygen Delivery Me thod Nasal Cannula Hospitalist - H&P: Result Labs Labs: Short CBC 12/28/21 Range/Units 19:40 WBC 9.12 (4.50-11.00) K/uL Hgb 8.5 L (12.0-16.0) gm/dL Hct 29.2 L (33.0-51.0) % Plt Count 179 (140-440) K/uL BMP 12/28/21 19:40 Sodium 141 Potassium 4.9 Chloride 113 Carbon Dioxide 24 BUN 28 Creatinine 1.0 Glucose 108 Calcium 8.4 Liver Function 12/28/21 Range/Units 19:40 Total Bilirubin 0.5 (0.1-1.5) mg/dL Direct Bilirubin 0.2 (0.0-0.5) mg/dL AST 31 (12-35) U/L ALT 29 (4-35) U/L Alkaline Phosphatase 53 (40-150) U/L Albumin 3.3 (3.3-5.0) g/dL INDICATION: Right rib pain after fall, vomiting, recent pneumonia. TECHNIQUE: CT chest was acquired with 75 cc Isovue 370 IV contrast. COMPARISON: Chest radiograph from 12/25/2021. FINDINGS: Lungs and pleura: Severe bilateral centrilobular emphysema. The right lung is hyperexpanded, but otherwise clear without suspicious nodule. There is near circumferential pleural thickening of the left upper lobe with peripheral consolidation and interior ground-glass, presumably secondary to previous treatment. Left lower lobe atelectasis. No pneumothorax. ? Heart and vasculature: Heart size is normal. Thoracic aorta and pulmonary artery are normal in caliber.No pulmonary embolism. No pericardial effusion. Coronary artery and thoracic aorta atherosclerotic calcification. Lymph nodes/mediastinum: No mediastinal, hilar, or axillary adenopathy. Moderate sized hiatal hernia. There is mid esophageal mural thickening with surrounding inflammatory stranding and air fluid level is noted in the proximal esophagus. Chest wall: No masses. Thyroid: 1.2 cm right thyroid nodule. Upper abdomen: Unremarkable. Bones: Right humeral head soft tissue anchors. Acute nondisplaced right anterior 8th and 9th rib fractures. Otherwise the for age. IMPRESSION: Acute nondisplaced right anterior 8th and 9th rib fractures. No pneumothorax. Consolidation and ground-glass in the left upper lobe with volume loss, likely posttreatment changes. Difficult to exclude superimposed infection in the correct clinical setting. Mid esophageal mural thickening with surrounding inflammation, compatible with esophagitis, possibly secondary to recent vomiting. Small air-fluid level in the proximal esophagus puts the patient at increased risk for aspiration. 1.2 cm right thyroid nodule. Recommend routine thyroid ultrasound for further evaluation, if not previously performed. Please note that all CT scans at this facility use dose modulation, iterative reconstruction, and/or weight-based dosing when appropriate to reduce radiation dose to as low as reasonably achievable. Dictated by Carlos A Granados MD @ 12/28/2021 8:33:02 PM Assessment and Plan Assessment and plan (1) Frequent falls: Status: Acute Assessment and Plan: - unclear if patient is falling secondary to weakness, hypotension, arrhythmia - will admit to telemetry, await outside records for recent TTE results - orthostatic blood pressures - PT and OT evaluation (2) Multiple rib fractures: Status: Acute Assessment and Plan: - pain control - IS (3) Vomiting: Status: Acute Assessment and Plan: - intermittent, mild. Patient did not vomited all during our visit. Imaging concerning for gastritis; will start patient on daily PPI and follow symptomatically - may need EGD, pending clinical course (4) Gastritis: Status: Acute Assessment and Plan: - see above (5) Pneumonia: Problem comment: Patient on outpatient IV ertapenem until January 01, ordered by outside hospital Status: Acute Assessment and Plan: - this fall in [place]. Pneumonia complicated by empyema formation requi ring chest tube, unclear if there has been any acute change on imaging from ER today (6) Macrocytic anemia: Status: Acute Assessment and Plan: - will obtain iron studies, B12, folate and follow hemoglobin closely - defer pharmacologic anticoagulation given radiographic concern of gastritis and anemia Plan - per above - Full Code status - patient and son updated at bedside, questions answered
[2021-12-28 22:14] LABS: Free T4 Free Thyroxine* 1.09 ng/dL (0.70-1.85)
[2021-12-28] MEDS: MORPHINE 4 MG/ML INJ IVP (22:21)
[2021-12-28 22:35] VITALS: BP 119/64; PULSE 76; RESP 16; O2SAT 100
[2021-12-28 23:32] LABS: PCR FLU A Negative PCR FLU A (Negative); PCR FLU B Negative PCR FLU B (Negative)
[2021-12-28 23:33] LABS: SARS PCR* Negative SARS-CoV-2 (Negative)
[2021-12-28 23:38] VITALS: PULSE 73
[2021-12-29] VITALS (10 sets, daily range): BP systolic 90–134; BP diastolic 46–64; PULSE 66–93; RESP 14–24; TEMP 36.3–36.6; O2SAT 89–97; BMI 23.8
[2021-12-29] MEDS: ATORVASTATIN CALCIUM 40 MG TABLET PO ×2 (00:45→23:20)
[2021-12-29] MEDS: MORPHINE 4 MG/ML INJ IVP ×3 (00:46→08:35)
[2021-12-29] MEDS: ALBUTEROL INHALER 1 PUFF IH ×3 (00:46→08:36)
[2021-12-29] MEDS: PANTOPRAZOLE SODIUM 40 MG INJ IVP ×2 (00:46→23:20)
[2021-12-29] MEDS: IPRAT-ALBUT 0.5-2.5 MG/3 ML NEB 1 NEB IH ×2 (00:58→17:57)
[2021-12-29 04:46] LABS: Basophils Absolute Auto 0.06 K/uL (0.00-0.30); Basophils Percent Auto 0.7 % (0.0-3.0); Eosinophils Absolute Auto 0.33 K/uL (0.00-0.50); Hematocrit 28.9 % (33.0-51.0); Hemoglobin* 8.4 gm/dL (12.0-16.0); Immature Granulocytes Abs Auto 0.02 K/uL (0.00-0.30); Immature Granulocytes Pct Auto 0.2 %; Immature Reticulocyte Fraction 23.8 % (3.0-15.9); Lymphocytes Percent Auto 15.6 % (20-44); Mean Corpuscular HGB Conc 29 gm/dL (32-36); Mean Corpuscular Hemoglobin 30 pg (26-34); Mean Corpuscular Volume 104 fL (80-100); Monocytes Percent Auto 7.5 % (0.0-11.0); Neutrophils Absolute Auto 5.93 K/uL (1.7-7.0); Platelet Count* 159 K/uL (140-440); RDW Coefficient of Variation % 20.5 % (11.5-15.5); Red Blood Count 2.79 m/uL (4.00-5.20); Reticulocyte Hemoglobin Equivi 31.3 pg (29.0-35.0); Reticulocyte Percent 2.7 % (0.5-2.0); Reticulocytes Absolute 0.07 # (0.03-0.08); White Blood Count* 8.25 K/uL (4.50-11.00)
[2021-12-29 04:47] LABS: Slide Review Reflex No
[2021-12-29 05:00] LABS: Albumin* 2.8 g/dL (3.3-5.0); Chloride* 114 mmol/L (96-114); Sodium* 142 mmol/L (135-149)
[2021-12-29 05:01] LABS: Potassium* 4.6 mmol/L (3.6-5.1)
[2021-12-29 05:03] LABS: Alkaline Phosphatase* 50 U/L (40-150); Aspartate Amino Transferase* 29 U/L (12-35); Bilirubin Total* 0.6 mg/dL (0.1-1.5); Blood Urea Nitrogen* 21 mg/dL (7-30); Carbon Dioxide* 28 mmol/L (20-32); Creatinine* 0.9 mg/dL (0.5-1.5); Estimated Glomerular Filt Rate 64 ml/min; Total Protein* 5.6 g/dL (6.0-8.3)
[2021-12-29 05:04] LABS: Alanine Aminotransferase* 26 U/L (4-35); Glucose* 97 mg/dL (60-115)
--- NOTE | 2021-12-29 05:49 | PC.NURSE ---
ADMISSION/SHIFT NOTE: Pt to room 257 following multiple falls at home and persistent N/V and diarrhea. Pt A&O. Afebrile, oxygen saturations in them mid 90's on chronic 3L O2 PNC. Pt reports SOB on exertion which improves at rest. Tele reads NSR, denies CP. Pt has denied N/V all shift, no BM this shift. Up to BSC with heavy assist of 1 r/t rib pain. PRN Morphine given for pain with pt reporting relief. PICC line to pt's right upper arm is patent. Pt resting in bed, uses call light appropriately, fall precautions in place.
[2021-12-29 05:53] LABS: Iron* 27 ug/dL (37-170)
[2021-12-29 06:02] LABS: Percent Iron Saturation 14 % (20-50); Total Iron Binding Capacity 201 ug/dL (265-497)
[2021-12-29 06:06] LABS: Vitamin B12* 923 pg/mL (243-894)
[2021-12-29] MEDS: POTASSIUM CHLORIDE 10 MEQ CAPSULE ER 40 MEQ PO (08:36)
[2021-12-29] MEDS: FLUOXETINE HCL 20 MG CAPSULE PO (08:36)
[2021-12-29] MEDS: MONTELUKAST 10 MG TABLET PO (08:36)
[2021-12-29] MEDS: LORazepam 0.5 MG TABLET PO (08:36)
[2021-12-29] MEDS: FERROUS SULFATE 325 MG TABLET PO (08:36)
[2021-12-29] MEDS: LACTOBACILLUS ACIDOPHILUS 1 TABLET 1 TAB PO (08:36)
[2021-12-29] MEDS: ONDANSETRON 2 MG/ML inj 4 MG IVP (08:50)
[2021-12-29] MEDS: ERTAPENEM 1 GM in 0.9 % SODIUM CHLORIDE Mini-bag 100 ML IVPB (09:52)
[2021-12-29] MEDS: 0.9 % SODIUM CHLORIDE 250 ml IV (09:53)
[2021-12-29] MEDS: SODIUM CHLORIDE 0.9 % (FLUSH) 10 ML SYRINGE 5 ML IVF (10:06)
[2021-12-29] MEDS: BUDESONIDE 0.5 MG/2ML NEB NEB ×2 (10:22→23:20)
[2021-12-29] MEDS: ACETAMINOPHEN 500 MG TABLET PO ×2 (11:44→17:50)
[2021-12-29] MEDS: ALBUTEROL INHALER 2 PUFF IH ×2 (13:16→17:50)
--- NOTE | 2021-12-29 13:28 | PM.IMPN1 ---
Progress Note: A&P Assessment and plan (1) Hypotension: Status: Acute Assessment and Plan: Hold all antihypertensive medications. Obtain orthostatic BPs now and daily. (2) Macrocytic anemia: Problem details: 12/06/2021 Hgb 8.1 12/14/2021 Hgb 8.6 12/18/2021 Hgb 9.4 Status: Chronic Assessment and Plan: Stable. (3) Frequent falls: Status: Acute Assessment and Plan: Likely due to low BP combined with deconditioning. Hold antihypertensives. PT/OT. May need placement. (4) Gastritis: Status: Acute Assessment and Plan: Continue PPI. (5) Multiple rib fractures: Problem details: From fall at home Status: Acute Assessment and Plan: Has been getting morphine for pain control. Transition to oxycodone today. (6) Weakness: Status: Acute Assessment and Plan: PT/OT (7) Physical deconditioning: Status: Chronic Assessment and Plan: PT and OT. (8) Diarrhea: Problem details: Has been on antibiotics for at least 3 weeks. Cdiff test 12/16/2021 negative. Status: Acute Assessment and Plan: Obtain specimen for C.diff. (9) HCAP (healthcare-associated pneumonia): Problem details: Originally admitted to hospital in [place], [place] 11/04/2021. Started on ceftriaxone and vanco, then switched to cefepime and Vanco there as well as treated for presumed left empyema with drainage. Cytology negative for malignancy. Admitted to [facility] 12/13/2021 on ertapenem. Discharged 12/18/2021 on outpatient IV ertapenem until January 10. Status: Acute Assessment and Plan: Continue ertapenem 1 gram daily@10am (10) CKD (chronic kidney disease) stage 3, GFR 30-59 ml/min: Problem details: baseline Cr 0.9-0.96 Status: Chronic (11) On home oxygen therapy: Problem details: 2-3 LPM chronically for COPD Status: Chronic Assessment and Plan: Stable needs. (12) ASCVD (arteriosclerotic cardiovascular disease): Status: Chronic (13) DVT (deep venous thrombosis): Problem details: in x 3, after back surgery Status: Chronic Plan VTE prophylaxis: due to anemia and gastritis, will avoid pharmacologic prophylaxis. Use TEDs, SCDs and ambulation as able. Subjective Time Seen by Provider: 08:35 Date Seen: 12/29/21 Interval history: She is having diarrhea. She complains of pain in her right low chest, especially with movement. Nurses note that she is able to move easily, but unsteady when she gets up. Exam Narrative: Exam Narrative: General: No acute distress. Awake, alert, oriented x3. No pallor. No jaundice. Oropharynx: Clear. Mucous membranes moist. Cardiovascular: Regular rate and rhythm. No murmurs, gallops, or rubs. Respiratory: No respiratory distress. Clear to auscultation bilaterally. No wheezes or crackles. Abdomen: Bowel sounds present. Soft, nondistended, nontender. Extremities: No pedal edema. Const: Vital Signs, click to edit/add: Vital Signs - 24 hr 12/28/21 18:39 12/28/21 22:35 12/29/21 00:31 Temperature 97.8 F 97.4 F L Pulse Rate Pulse Rate [Left R adial] 93 Pulse Rate [Pulse Oximeter] 72 76 Respiratory Rate 18 16 20 Blood Pressure [Le ft Arm] 134/61 Blood Pressure [Le ft Upper Arm] 118/62 119/64 Pulse Oximetry 98 100 93 Oxygen Delivery Me thod Nasal Cannula Room Air Nasal Cannula Oxygen Flow Rate 2 3 12/29/21 00:31 12/29/21 03:00 12/28/21 23:38 Temperature 97.8 F Pulse Rate 73 Pulse Rate [Left R adial] 72 Pulse Rate [Pulse Oximeter] Respiratory Rate 20 20 Blood Pressure [Le ft Arm] 100/55 L Blood Pressure [Le ft Upper Arm] Pulse Oximetry 94 93 Oxygen Delivery Me thod Nasal Cannula Nasal Cannula Oxygen Flow Rate 3 3 12/29/21 08:05 12/29/21 09:01 12/29/21 09:01 Temperature 97.9 F Pulse Rate 74 Pulse Rate [Left R adial] 87 Pulse Rate [Pulse Oximeter] Respiratory Rate 20 20 Blood Pressure [Le ft Arm] 109/52 L Blood Pressure [Le ft Upper Arm] Pulse Oximetry 95 95 Oxygen Delivery Me thod Nasal Cannula Nasal Cannula Oxygen Flow Rate 3 3 12/29/21 11:50 Temperature 97.6 F Pulse Rate Pulse Rate [Left R adial] 66 Pulse Rate [Pulse Oximeter] Respiratory Rate 14 Blood Pressure [Le ft Arm] 90/64 Blood Pressure [Le ft Upper Arm] Pulse Oximetry 97 Oxygen Delivery Me thod Room Air Oxygen Flow Rate Labs Labs: Laboratory Results - last 24 hr 12/28/21 12/28/21 12/28/21 19:40 19:40 19:40 WBC 9.12 RBC 2.85 L Hgb 8.5 L Hct 29.2 L MCV 103 H MCH 30 MCHC 29 L RDW Coeff of Azar 20.2 H Plt Count 179 Neut % (Auto) 82.1 H Lymph % (Auto) 10.1 L [place] % (Auto) 6.0 Eos % (Auto) 1.2 Baso % (Auto) 0.3 Neut # (Auto) 7.50 H Lymph # (Auto) 0.90 [place] # (Auto) 0.50 Eos # (Auto) 0.11 Baso # (Auto) 0.03 Abs Immat Gran (auto) 0.03 Imm/Tot Granulo (auto) 0.3 Absolute Retic Percent Retic Immature Retic Fraction Retic Hgb Equivalent INR 0.95 VBG pH VBG pCO2 VBG pO2 VBG HCO3 Sodium 141 Potassium 4.9 Chloride 113 Carbon Dioxide 24 BUN 28 Creatinine 1.0 Estimated Creat Clear 34.30 Estimated GFR 56 Glucose 108 Calcium 8.4 Iron TIBC % Saturation Ferritin Total Bilirubin 0.5 Direct Bilirubin 0.2 AST 31 ALT 29 Alkaline Phosphatase 53 C-Reactive Protein 5.1 H Total Protein 6.1 Albumin 3.3 Lipase 26 Vitamin B12 TSH Free T4 SARS-CoV-2 (PCR) Influenza Type A (PCR) Influenza Type B (PCR) POC Troponin I 12/28/21 12/28/21 12/28/21 19:40 19:40 19:40 WBC RBC Hgb Hct MCV MCH MCHC RDW Coeff of Azar Plt Count Neut % (Auto) Lymph % (Auto) [place] % (Auto) Eos % (Auto) Baso % (Auto) Neut # (Auto) Lymph # (Auto) [place] # (Auto) Eos # (Auto) Baso # (Auto) Abs Immat Gran (auto) Imm/Tot Granulo (auto) Absolute Retic Percent Retic Immature Retic Fraction Retic Hgb Equivalent INR VBG pH 7.343 VBG pCO2 47 VBG pO2 76.0 H VBG HCO3 25 Sodium Potassium Chloride Carbon Dioxide BUN Creatinine Estimated Creat Clear Estimated GFR Glucose Calcium Iron TIBC % Saturation Ferritin Total Bilirubin Direct Bilirubin AST ALT Alkaline Phosphatase C-Reactive Protein Total Protein Albumin Lipase Vitamin B12 TSH 0.116 L Free T4 1.09 SARS-CoV-2 (PCR) Influenza Type A (PCR) Influenza Type B (PCR) POC Troponin I 0.00 L 12/28/21 12/29/21 12/29/21 22:25 04:30 04:30 WBC 8.25 RBC 2.79 L Hgb 8.4 L Hct 28.9 L MCV 104 H MCH 30 MCHC 29 L RDW Coeff of Azar 20.5 H Plt Count 159 Neut % (Auto) 72.0 Lymph % (Auto) 15.6 L [place] % (Auto) 7.5 Eos % (Auto) 4.0 Baso % (Auto) 0.7 Neut # (Auto) 5.93 Lymph # (Auto) 1.30 [place] # (Auto) 0.60 Eos # (Auto) 0.33 Baso # (Auto) 0.06 Abs Immat Gran (auto) 0.02 Imm/Tot Granulo (auto) 0.2 Absolute Retic 0.07 Percent Retic 2.7 H Immature Retic Fraction 23.8 H Retic Hgb Equivalent 31.3 INR VBG pH VBG pCO2 VBG pO2 VBG HCO3 Sodium 142 Potassium 4.6 Chloride 114 Carbon Dioxide 28 BUN 21 Creatinine 0.9 Estimated Creat Clear 34.30 Estimated GFR 64 Glucose 97 Calcium 8.0 L Iron TIBC % Saturation Ferritin Total Bilirubin 0.6 Direct Bilirubin AST 29 ALT 26 Alkaline Phosphatase 50 C-Reactive Protein Total Protein 5.6 L Albumin 2.8 L Lipase Vitamin B12 TSH Free T4 SARS-CoV-2 (PCR) Negative SARS-CoV-2 Influenza Type A (PCR) Negative PCR FLU A Influenza Type B (PCR) Negative PCR FLU B POC Troponin I 12/29/21 12/29/21 12/29/21 04:30 04:30 04:30 WBC RBC Hgb Hct MCV MCH MCHC RDW Coeff of Azar Plt Count Neut % (Auto) Lymph % (Auto) [place] % (Auto) Eos % (Auto) Baso % (Auto) Neut # (Auto) Lymph # (Auto) [place] # (Auto) Eos # (Auto) Baso # (Auto) Abs Immat Gran (auto) Imm/Tot Granulo (auto) Absolute Retic Percent Retic Immature Retic Fraction Retic Hgb Equivalent INR VBG pH VBG pCO2 VBG pO2 VBG HCO3 Sodium Potassium Chloride Carbon Dioxide BUN Creatinine Estimated Creat Clear Estimated GFR Glucose Calcium Iron 27 L TIBC 201 L % Saturation 14 L Ferritin 261.0 Total Bilirubin Direct Bilirubin AST ALT Alkaline Phosphatase C-Reactive Protein Total Protein Albumin Lipase Vitamin B12 923 H TSH Free T4 SARS-CoV-2 (PCR) Influenza Type A (PCR) Influenza Type B (PCR) POC Troponin I
--- NOTE | 2021-12-29 14:40 | PC.NURSE ---
Shift Summary: Patient pleasant and cooperative, drowsy and weak, requiring two assist with walker and gait belt to get to BSC/recliner. Easily wakes up to voice but quickly falls back asleep. Worked with PT/OT today. Pain controlled with Morphine x1 and acetaminophen x1. Incontinent this morning. Some nausea with lunch, son assisted with feeding due to patients weakness.
[2021-12-29 16:45] LABS: HCO3 VBG 26 mmol/L (21-28); PCO2 VBG 53 mmHG (40-50); PO2 VBG 80.2 mmHG (25-47); pH VBG 7.295 (7.32-7.43)
--- NOTE | 2021-12-29 18:25 | PC.NURSE ---
End of shift-- Pt is pleasant and primarily cooperative. Pt was very drowsy this afternoon and minimally responsive to verbal stimuli and light shaking in the form of eye opening and grunting before immediately falling back asleep. Oriented to person only this afternoon and stated that she believed she was at home. VSS, though minimally hypotensive with B/P in 90s/50s and pt is afebrile. SPO2 97% on 3L per n.c. which was dropped to 2L per n.c. Pt maintained sats >90% on 2L most of the evening, though sats noted to drop as low as 84% on 2L while sleeping. MD was notified of change in LOC and O2 needs. See orders for details. She c/o pain in her right side with any pressure or change of position. She was unable to rate, though facial grimacing was noted. Pt was given Tylenol and an ice pack with apparent relief. LS diminished. Telemetry shows NSR. She denied nausea, but appetite was poor and she ate only bites this evening which was fed to her by her son. No bowel movement this shift. She was up to the commode with assist of 2 and a walker. Pt tolerated transfer well, however, pt is at times very unsteady on her feet and 2 assist was utilized for safety. Urine output adequate. Son was at bedside this evening and appears loving and supportive.
[2021-12-30] VITALS (7 sets, daily range): BP systolic 103–127; BP diastolic 45–69; PULSE 76–97; RESP 14–24; TEMP 36.4–37.2; O2SAT 90–97
[2021-12-30] MEDS: ACETAMINOPHEN 500 MG TABLET PO ×4 (01:00→21:58)
--- NOTE | 2021-12-30 06:10 | PC.NURSE ---
Shift note: Pt is severely SOB with exertion, sats down to 70ies when up to the BSC. Deep breath and cough encouraged, pt takes 3-5 min to recover to 89-90%, she is on 3L O2 via NC. Pt up with assist 1-2, to the BSC, confused to her surroundings, needs to be reoriented frequently.
--- NOTE | 2021-12-30 07:28 | CRLHL7_ITS ---
For Patients: As a result of the Century Cures Act, medical imaging exams and procedure reports are released immediately into your electronic medical record. You may view this report before your referring provider. If you have questions, please contact your health care provider. INDICATION: Worsening dyspnea and hypoxia. COMPARISON: December 25, 2021 TECHNIQUE: Portable AP semi-upright single-view study December 30, 2021 at 7:49 a.m. FINDINGS: TUBES AND LINES: None. HEART AND MEDIASTINUM: Heart size normal.. LUNGS AND PLEURAL SPACES: Parenchymal opacity projects from the left hilum to the lateral aspect of the left midlung and towards the left base. This is unchanged since the prior study and probably represents a treated malignancy.. There is pleural thickening on the left. The right lung and right pleural space remain normal OSSEOUS STRUCTURES: Age-appropriate appearance. No acute focal finding. 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 No new findings when compared to December 25, 2021 Dictated by Simon Anguiano MD @ 12/30/2021 8:08:30 AM (Electronically Signed)
[2021-12-30] MEDS: POTASSIUM CHLORIDE 10 MEQ CAPSULE ER 40 MEQ PO (08:53)
[2021-12-30] MEDS: MONTELUKAST 10 MG TABLET PO (08:54)
[2021-12-30] MEDS: BUDESONIDE 0.5 MG/2ML NEB NEB ×2 (08:54→21:11)
[2021-12-30] MEDS: ALBUTEROL INHALER 2 PUFF IH ×4 (08:54→21:11)
[2021-12-30] MEDS: FLUOXETINE HCL 20 MG CAPSULE PO (08:54)
[2021-12-30] MEDS: FERROUS SULFATE 325 MG TABLET PO (08:54)
[2021-12-30] MEDS: LACTOBACILLUS ACIDOPHILUS 1 TABLET 1 TAB PO (08:56)
--- NOTE | 2021-12-30 09:41 | P.IMPN_ITS ---
Progress Note: A&P Assessment and plan (1) Hypotension: Status: Acute Assessment and Plan: I think this was the reason she was having falls at home. All antihypertensive medications are still on hold. Blood pressures are much better today. Continue to hold the antihypertensives. If she becomes consistently hypertensive, will add these back 1 by 1, starting with furosemide. She will likely need lower doses and possibly be on only 1 or 2 of them. (2) Macrocytic anemia: Problem details: 12/06/2021 Hgb 8.1 12/14/2021 Hgb 8.6 12/18/2021 Hgb 9.4 Status: Chronic Assessment and Plan: Stable. (3) Frequent falls: Status: Acute Assessment and Plan: Likely due to low BP combined with deconditioning. Blood pressure improving now off antihypertensives. Continue PT/OT. Seek fdc facility for rehab. (4) Gastritis: Status: Acute Assessment and Plan: Continue PPI. (5) Multiple rib fractures: Problem details: From fall at home Status: Acute Assessment and Plan: Stop morphine altogether. Continue low-dose oxycodone p.r.n.. I have changed oxygen parameters to keep O2 sats 88-89% to hopefully decrease the risk of hypercapnia. (6) Weakness: Status: Acute Assessment and Plan: PT/OT (7) Physical deconditioning: Status: Chronic Assessment and Plan: PT and OT. Will need fdc facility that can do ertapenem IV daily through 01/10/2022. (8) Diarrhea: Problem details: Has been on antibiotics for at least 3 weeks. Cdiff test 12/16/2021 negative. Status: Acute Assessment and Plan: Repeat C diff test pending. (9) HCAP (healthcare-associated pneumonia): Problem details: Originally admitted to hospital in [place], [place] 11/04/2021. Started on ceftriaxone and vanco, then switched to cefepime and Vanco there as well as treated for presumed left empyema with drainage. Cytology negative for malignancy. Admitted to [facility] 12/13/2021 on ertapenem. Discharged 12/18/2021 on outpatient IV ertapenem until January 10. Status: Acute Assessment and Plan: Continue ertapenem 1 gram daily@10am (10) CKD (chronic kidney disease) stage 3, GFR 30-59 ml/min: Problem details: baseline Cr 0.9-0.96 Status: Chronic (11) On home oxygen therapy: Problem details: 2-3 LPM chronically for COPD Status: Chronic Assessment and Plan: Wean to keep sats 88-89% to prevent hypercapnea. (12) ASCVD (arteriosclerotic cardiovascular disease): Status: Chronic (13) DVT (deep venous thrombosis): Problem details: in x 3, after back surgery Status: Chronic Assessment and Plan: I spoke with our radiologist today and asked him to take a look at the CT chest from 12/28/2021. This scan was done with IV contrast, but I did not see any mention of whether not there were pulmonary emboli. The radiologist told me that he did not see any pulmonary emboli on the scan. Plan VTE prophylaxis: due to anemia and gastritis, will avoid pharmacologic prophylaxis. Use TEDs, SCDs and ambulation as able. Subjective Time Seen by Provider: 07:45 Date Seen: 12/30/21 Interval history: Charu says she had a bad day yesterday. She complains of pain in her right low chest/side when she breathes or moves. She was confused and somnolent yesterday evening and a VBG showed CO2 retention. Her narcotic medications were adjusted. She is more awake today, but in pain. Her son came later in the morning and I spoke with him in separate area because she was on the commode. He noted that he has been very concerned about her because he felt that they pushed her out of the hospital in [place] too soon and he has been unable to get her in to see somebody at [facility] in [place]. He has been watching her decline and get weaker and thinks that she needs fdc facility for rehab and safety. He notes that she is confused today and he has not seen her like this before. He did agree that she was better today than yesterday. Exam Narrative: Exam Narrative: General: No acute distress. Awake, alert, oriented x3. No pallor. No jaundice. Oropharynx: Clear. Mucous membranes moist. Cardiovascular: Regular rate and rhythm. No murmurs, gallops, or rubs. Respiratory: No respiratory distress. Taking shallow breaths. Clear to auscultation bilaterally, diminished in the right lung field. Abdomen: Bowel sounds present. Soft, nondistended, nontender. Const: Vital Signs, click to edit/add: Vital Signs - 24 hr 12/29/21 11:50 12/29/21 13:56 12/29/21 15:00 Temperature 97.6 F 97.7 F Pulse Rate Pulse Rate [Left R adial] 66 75 Pulse Rate [orthos tatic lying Right Pulse Oximeter] 71 Pulse Rate [orthos tatic sitting Righ t Pulse Oximeter] 73 Pulse Rate [orthos tatic standing Rig ht Pulse Oximeter] 86 Respiratory Rate 14 14 Blood Pressure [Le ft Arm] 90/64 99/59 L Blood Pressure [or thostatic lying Ri ght Arm] 91/46 L Blood Pressure [or thostatic sitting Right Arm] 91/49 L Blood Pressure [or thostatic standing Right Arm] 94/50 L Pulse Oximetry 97 97 Oxygen Delivery Me thod Room Air Room Air Oxygen Flow Rate 3 12/29/21 15:00 12/29/21 17:10 12/29/21 15:00 Temperature Pulse Rate 75 Pulse Rate [Left R adial] 75 Pulse Rate [orthos tatic lying Right Pulse Oximeter] Pulse Rate [orthos tatic sitting Righ t Pulse Oximeter] Pulse Rate [orthos tatic standing Rig ht Pulse Oximeter] Respiratory Rate 14 14 Blood Pressure [Le ft Arm] Blood Pressure [or thostatic lying Ri ght Arm] Blood Pressure [or thostatic sitting Right Arm] Blood Pressure [or thostatic standing Right Arm] Pulse Oximetry 97 Oxygen Delivery Me thod Nasal Cannula Oxygen Flow Rate 3 12/29/21 19:00 12/29/21 23:00 12/29/21 23:00 Temperature 97.7 F 98 F Pulse Rate Pulse Rate [Left R adial] 78 86 Pulse Rate [orthos tatic lying Right Pulse Oximeter] Pulse Rate [orthos tatic sitting Righ t Pulse Oximeter] Pulse Rate [orthos tatic standing Rig ht Pulse Oximeter] Respiratory Rate 16 24 Blood Pressure [Le ft Arm] 90/50 L 103/48 L Blood Pressure [or thostatic lying Ri ght Arm] Blood Pressure [or thostatic sitting Right Arm] Blood Pressure [or thostatic standing Right Arm] Pulse Oximetry 89 90 90 Oxygen Delivery Me thod Nasal Cannula Nasal Cannula Nasal Cannula Oxygen Flow Rate 3 2.5 3 12/30/21 01:00 12/30/21 03:00 12/30/21 07:00 Temperature 98 F Pulse Rate 76 Pulse Rate [Left R adial] 85 76 Pulse Rate [orthos tatic lying Right Pulse Oximeter] Pulse Rate [orthos tatic sitting Righ t Pulse Oximeter] Pulse Rate [orthos tatic standing Rig ht Pulse Oximeter] Respiratory Rate 24 14 Blood Pressure [Le ft Arm] 108/45 L Blood Pressure [or thostatic lying Ri ght Arm] Blood Pressure [or thostatic sitting Right Arm] Blood Pressure [or thostatic standing Right Arm] Pulse Oximetry 90 Oxygen Delivery Me thod Nasal Cannula Oxygen Flow Rate 3 12/30/21 07:00 12/30/21 07:00 12/30/21 07:00 Temperature 99 F Pulse Rate 80 Pulse Rate [Left R adial] 76 Pulse Rate [orthos tatic lying Right Pulse Oximeter] Pulse Rate [orthos tatic sitting Righ t Pulse Oximeter] Pulse Rate [orthos tatic standing Rig ht Pulse Oximeter] Respiratory Rate 14 14 Blood Pressure [Le ft Arm] 114/66 Blood Pressure [or thostatic lying Ri ght Arm] Blood Pressure [or thostatic sitting Right Arm] Blood Pressure [or thostatic standing Right Arm] Pulse Oximetry 97 97 Oxygen Delivery Me thod Nasal Cannula Nasal Cannula Oxygen Flow Rate 3 3 12/30/21 07:00 Temperature Pulse Rate Pulse Rate [Left R adial] Pulse Rate [orthos tatic lying Right Pulse Oximeter] 82 Pulse Rate [orthos tatic sitting Righ t Pulse Oximeter] 80 Pulse Rate [orthos tatic standing Rig ht Pulse Oximeter] 93 Respiratory Rate Blood Pressure [Le ft Arm] Blood Pressure [or thostatic lying Ri ght Arm] 111/50 L Blood Pressure [or thostatic sitting Right Arm] 111/48 L Blood Pressure [or thostatic standing Right Arm] 103/53 L Pulse Oximetry Oxygen Delivery Me thod Oxygen Flow Rate Documenting provider has reviewed patient's vital signs: yes Labs Labs: Laboratory Results - last 24 hr 12/29/21 16:40 VBG pH 7.295 L VBG pCO2 53 H VBG pO2 80.2 H VBG HCO3 26 Ordering Physician: Maylin Dale MD Date of Service: 12/30/21 Procedure(s): XR chest 1V portable Accession Number(s): [id number] cc: Maylin Dale MD; Provider,Not a Local ~ For Patients: As a result of the Cures Act, medical imaging exams and procedure reports are released immediately into your electronic medical record. You may view this report before your referring provider. If you have questions, please contact your health care provider. INDICATION: Worsening dyspnea and hypoxia. COMPARISON: December 25, 2021 TECHNIQUE: Portable AP semi-upright single-view study December 30, 2021 at 7:49 a.m. FINDINGS: TUBES AND LINES: None. HEART AND MEDIASTINUM: Heart size normal.. LUNGS AND PLEURAL SPACES: Parenchymal opacity projects from the left hilum to the lateral aspect of the left midlung and towards the left base. This is unchanged since the prior study and probably represents a treated malignancy.. There is pleural thickening on the left. The right lung and right pleural space remain normal OSSEOUS STRUCTURES: Age-appropriate appearance. No acute focal finding. 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 No new findings when compared to December 25, 2021 Dictated by Simon Anguiano MD @ 12/30/2021 8:08:30 AM (Electronically Signed)
[2021-12-30] MEDS: 0.9 % SODIUM CHLORIDE 250 ml IV (10:16)
[2021-12-30] MEDS: ERTAPENEM 1 GM in 0.9 % SODIUM CHLORIDE Mini-bag 100 ML IVPB (10:21)
[2021-12-30 13:19] LABS: HCO3 VBG 26 mmol/L (21-28); PCO2 VBG 46 mmHG (40-50); PO2 VBG 42.2 mmHG (25-47); pH VBG 7.369 (7.32-7.43)
--- NOTE | 2021-12-30 16:04 | RESP.RT ---
Pt seen twice today for IS and deep breathing. This AM, she did not do well with IS, requiring ongoing coaching. This afternoon she was more alert and did better with IS. Volumes of 700cc Also had her deep breath on command, which is just as effective. Pt on 3L NC, she does desaturaed into high 70's low 80's with activity. She does purse lip breath, and saturations do return to the high 80's after a few minutes. Continue to work with her for IS and deep breathing. She would not cough for me on demand today. That will need to be started in next day or two. BBS are very decreased. No rhonchi, wheezing or crackles noted.
--- NOTE | 2021-12-30 16:16 | PC.SOCIAL ---
Discharge planning- Followed up with PT/OT therapy and recommendation is SNF for short-term rehab. Met with pt's son and MD. Son would like pt to go to SNF in [place]. If there is no availability pt's son would like SNF as close to [place] as possible. Phone call to the [facility] to inquire on bed availability. There are openings. Faxed initial referral to Maddison in admissions at [facility] at [phone]. Received a phone call back from Maddison in admissions stating pt has been approved clinically for admission and Maddison will follow up with this worker when the financial worker approves the admission. Provided an update to charge nurse.
--- NOTE | 2021-12-30 18:37 | PC.NURSE ---
End of Shift: Patient pleasant and cooperative, but forgetful and confused at times. Patient vitally stable, lung with crackles, BS WNL, PICC intact and SL. Patient with nasal cannula at 2 L with sats greater than 90%. Patient 1 assist, walker, gb to the BSC. Patient does not have good balance and can be impulsive. Patient has rated pain at most 8/10 in right flank, tylenol given twice. Right flank/ribs bruised. Patient tolerating regular diet and urinating, No BM.
[2021-12-30] MEDS: ATORVASTATIN CALCIUM 40 MG TABLET PO (21:11)
[2021-12-31] MEDS: PANTOPRAZOLE SODIUM 40 MG INJ IVP (00:23)
[2021-12-31 03:00] VITALS: BP 146/64; PULSE 97; RESP 16; TEMP 36.7; O2SAT 90
[2021-12-31] MEDS: ACETAMINOPHEN 500 MG TABLET PO ×2 (04:11→12:55)
--- NOTE | 2021-12-31 07:16 | PC.NURSE ---
Pt. cooperative and pleasant, forgetful and confused at times. PICC on right upper arm intact and SL. 2 L NC w/sats greater than 90%. Patient 1 assist, walker, gb to the Bedside commode. Patient does not have good balance and can be impulsive. Patient has rated pain at most 8/10 in right flank, tylenol given twice. Right flank/ribs bruised. Patient tolerating regular diet and urinating, No BM.
[2021-12-31 08:15] VITALS: BP 144/71; PULSE 87; RESP 22; TEMP 36.5; O2SAT 93
[2021-12-31 08:41] LABS: Folate, Serum >22.3 ng/mL (>=5.9)
[2021-12-31] MEDS: BUDESONIDE 0.5 MG/2ML NEB NEB (08:51)
[2021-12-31] MEDS: ALBUTEROL INHALER 2 PUFF IH ×2 (08:51→12:55)
[2021-12-31] MEDS: POTASSIUM CHLORIDE 10 MEQ CAPSULE ER 40 MEQ PO (08:51)
[2021-12-31] MEDS: FLUOXETINE HCL 20 MG CAPSULE PO (08:52)
[2021-12-31] MEDS: MONTELUKAST 10 MG TABLET PO (08:52)
[2021-12-31] MEDS: FERROUS SULFATE 325 MG TABLET PO (08:52)
[2021-12-31] MEDS: LACTOBACILLUS ACIDOPHILUS 1 TABLET 1 TAB PO (08:55)
[2021-12-31] MEDS: ERTAPENEM 1 GM in 0.9 % SODIUM CHLORIDE Mini-bag 100 ML IVPB (08:59)
[2021-12-31] MEDS: 0.9 % SODIUM CHLORIDE 250 ml IV (09:00)
--- NOTE | 2021-12-31 09:23 | P.DS_ITS ---
DS: Providers Provider Time Seen by Provider: 09:34 Date Seen: 12/31/21 Date of admission: 12/28/21 23:51 Primary care physician: Not a Local Provider Admitting Clinician: Christy Ward MD Consults: 12/28/21 23:37 Consult to Physical Therapy [CONS] Routine Comment: Reason(s) for PT Consult:: Evaluate and Treat Any Restrictions?:: No Restrictions Consult to Respiratory Therapy [CONS] Routine Comment: Reason(s) for RT Consult:: Consult 12/28/21 23:39 Consult to Occupational Therapy [CONS] Routine Comment: Reason(s) for OT Consult:: Evaluate and Treat Any Restrictions?:: No Restrictions 12/29/21 00:00 Consult to Speech Therapy [CONS] Routine Comment: Reason(s) for Speech Consult:: Swallowing Difficulty Comment: risk for aspiration per CT findings 12/29/21 00:44 Consult to Occupational Therapy [CONS] Routine Comment: Reason(s) for OT Consult:: Difficulty Managing ADLs Any Restrictions?:: No Restrictions Consult to Physical Therapy [CONS] Routine Comment: Reason(s) for PT Consult:: Recent Falls Any Restrictions?:: No Restrictions 12/29/21 15:26 Consult to Seed Cleaner [CONS] Routine Comment: Reason for Consult:: Discharge Planning Needs Attending Physician on discharge: Maylin Dale MD Date of Discharge: 12/31/21 DS: Diagnosis Discharge Diagnosis (1) Vomiting: Status: Acute (2) Frequent falls: Status: Acute (3) Multiple rib fractures: Status: Acute Problem details: From fall at home (4) COPD exacerbation: Status: Acute (5) Physical deconditioning: Status: Chronic (6) Weakness: Status: Chronic (7) Gastritis: Status: Acute (8) Macrocytic anemia: Status: Chronic Problem details: 12/06/2021 Hgb 8.1 12/14/2021 Hgb 8.6 12/18/2021 Hgb 9.4 12/29/2021 8.4 (9) Hypotension: Status: Resolved Problem details: Antihypertensives remain on hold (10) Diarrhea: Status: Acute Problem details: Has been on antibiotics for at least 3 weeks. Cdiff test 12/16/2021 and 12/31/2021 negative. (11) HCAP (healthcare-associated pneumonia): Status: Acute Problem details: Originally admitted to hospital in [place], [place] 11/04/2021. Started on ceftriaxone and vanco, then switched to cefepime and Vanco there as well as treated for presumed left empyema with drainage. Cytology negative for malignancy. Admitted to [facility] 12/13/2021 on ertapenem. Discharged 12/18/2021 on outpatient IV ertapenem until January 10. (12) CKD (chronic kidney disease) stage 3, GFR 30-59 ml/min: Status: Chronic Problem details: baseline Cr 0.9-0.96 (13) On home oxygen therapy: Status: Chronic Problem details: 2-3 LPM chronically for COPD (14) ASCVD (arteriosclerotic cardiovascular disease): Status: Chronic (15) Thyroid nodule: Status: Acute Problem details: CT chest 12/28/2021 1.2 cm right thyroid nodule. Recommend routine thyroid ultrasound for further evaluation, if not previously performed. (16) Hypercarbia: Status: Acute Problem details: With narcotics. Use oxygen supplementation cautiously. Recommend NC 2 LPM for discharge. DS: Summary Hospital Course Hospital Course: This is an 81-year-old female with a complicated past medical history who was hospitalized for healthcare acquired pneumonia and empyema in October 2021 and has been on ertapenem daily as an outpatient for that. She has recently had frequent falls and hypotension. Her most recent fall resulted in 2 right-sided rib fractures. She was admitted for this and hypotension. Her antihypertensives were held during this entire hospitalization and her blood pressures have normalized. She does not have hypertension. She does have a history of arterial sclerotic cardiovascular disease, which is, I suspect, the reason she had been on atenolol and lisinopril. Furosemide was also held due to hypotension. I will restart that today. Please monitor blood pressure to determine if she is tolerating this. If her blood pressure holds, lisinopril and atenolol could be restarted with further monitoring. Also consideration could be given to restarting these at lower doses. She is chronically on oxygen via nasal cannula for COPD history. She was quite painful initially. Opioid pain medication caused confusion, hypoxia for which her oxygen was increased and then hypercapnia on just 3 L per minute of oxygen via nasal cannula. Oxygen was weaned down again and she improved without other intervention. She has been splinting also because of the right-sided rib fractures. Today her pain is under good control and she is awake and feisty. Notably she is pursed lipped breathing today with expiratory wheezes and prolonged expiratory phase. I started her on oral prednisone for a COPD exacerbation. She remains on ertapenem daily, which she should get her PICC line through 01/10/2022. She wou ld likely benefit from seeing a circuit board inspector, hopefully before she is finished with her antibiotics. She has had soft frequent stools. C diff test was done at a previous hospital in [place] 12/16/2021 and was negative. We repeated the test today and it was negative. She also has a thyroid nodule which will need outpatient follow-up with thyroid ultrasound. She is discharged to care home facility today for rehab. Outpatient considerations: * Consideration of endoscopy for further evaluation of esophagitis verses esophageal dysmotility. * Outpatient thyroid US for nodule seen on CT chest 12/28/2021. It is possible she had this previously investigated in [place], but I do not have records for that. * Consider restarting beta-aramis and FARSHAD-inhibitor for history of cardiovascular disease, but on lower doses as above. * O2 via nasal cannula at 2 liters/minute. Be cautious if there is increased oxygen needs, because she is at risk for hypercapnia. * Patient has PICC line in place. * Ertapenem 1 g IV daily through 01/10/2022. * Follow-up with circuit board inspector, consider scheduling this for just before she finishes her antibiotics. Status at Discharge Functional status at discharge: uses cane/walker Overall status at discharge: patient is progressing back to baseline Time Spent with Patient Time attestation: Total time spent providing and/or coordinating discharge services: Exam Narrative: Exam Narrative: General: No acute distress. Awake, alert, oriented x3. No pallor. No jaundice. Oropharynx: Clear. Mucous membranes moist. Cardiovascular: Regular rate and rhythm. No murmurs, gallops, or rubs. Respiratory: Pursed lip breathing. Able to talk in complete sentences. No distress. Tight with prolonged expiratory phase, expiratory wheezes throughout. Abdomen: Bowel sounds present. Soft, nondistended, nontender. Const: Vital Signs, click to edit/add: Vital Signs - 24 hr 12/30/21 11:00 12/30/21 15:00 12/30/21 15:00 Temperature 98.6 F Pulse Rate Pulse Rate [Left R adial] 81 82 Respiratory Rate 16 16 16 Blood Pressure [Le ft Arm] 123/55 L Pulse Oximetry 92 95 Oxygen Delivery Me thod Nasal Cannula Nasal Cannula Oxygen Flow Rate 2 2 12/30/21 15:00 12/30/21 15:00 12/30/21 19:00 Temperature 99 F 98.1 F Pulse Rate 85 Pulse Rate [Left R adial] 82 83 Respiratory Rate 16 16 Blood Pressure [Le ft Arm] 110/55 L 121/61 Pulse Oximetry 95 95 Oxygen Delivery Me thod Nasal Cannula Nasal Cannula Oxygen Flow Rate 2 2 12/30/21 23:00 12/30/21 23:00 12/30/21 23:00 Temperature Pulse Rate 97 Pulse Rate [Left R adial] 94 Respiratory Rate 16 16 Blood Pressure [Le ft Arm] Pulse Oximetry 92 Oxygen Delivery Me thod Nasal Cannula Oxygen Flow Rate 2 12/30/21 23:00 12/31/21 03:00 12/31/21 08:15 Temperature 97.5 F L 98.0 F Pulse Rate Pulse Rate [Left R adial] 94 97 Respiratory Rate 16 16 22 Blood Pressure [Le ft Arm] 127/69 146/64 H Pulse Oximetry 92 90 93 Oxygen Delivery Me thod Nasal Cannula Nasal Cannula Nasal Cannula Oxygen Flow Rate 2 2 2 12/31/21 08:15 Temperature 97.7 F Pulse Rate Pulse Rate [Left R adial] 87 Respiratory Rate 22 Blood Pressure [Le ft Arm] 144/71 H Pulse Oximetry 93 Oxygen Delivery Me thod Nasal Cannula Oxygen Flow Rate 2 Documenting provider has reviewed patient's vital signs: yes DS: Data Data Completed and Pending Completed studies during hospitalization: 12/28/2021 7:55 p.m. EKG: Normal sinus rhythm, heart rate 73 beats per minute. Nonspecific T-wave abnormality. Ordering Physician: Yolis Sharp MD Date of Service: 12/28/21 Procedure(s): CT chest w con Accession Number(s): [id number] cc: Yolis Sharp MD; Provider,Not a Local ~ For Patients: As a result of the Cures Act, medical imaging exams and procedure reports are released immediately into your electronic medical record. You may view this report before your referring provider. If you have questions, please contact your health care provider. INDICATION: Right rib pain after fall, vomiting, recent pneumonia. TECHNIQUE: CT chest was acquired with 75 cc Isovue 370 IV contrast. COMPARISON: Chest radiograph from 12/25/2021. FINDINGS: Lungs and pleura: Severe bilateral centrilobular emphysema. The right lung is hyperexpanded, but otherwise clear without suspicious nodule. There is near circumferential pleural thickening of the left upper lobe with peripheral consolidation and interior ground-glass, presumably secondary to previous treatment. Left lower lobe atelectasis. No pneumothorax. Heart and vasculature: Heart size is normal. Thoracic aorta and pulmonary artery are normal in caliber.No pulmonary embolism. No pericardial effusion. Coronary artery and thoracic aorta atherosclerotic calcification. Lymph nodes/mediastinum: No mediastinal, hilar, or axillary adenopathy. Moderate sized hiatal hernia. There is mid esophageal mural thickening with surrounding inflammatory stranding and air fluid level is noted in the proximal esophagus. Chest wall: No masses. Thyroid: 1.2 cm right thyroid nodule. Upper abdomen: Unremarkable. Bones: Right humeral head soft tissue anchors. Acute nondisplaced right anterior 8th and 9th rib fractures. Otherwise the for age. IMPRESSION: Acute nondisplaced right anterior 8th and 9th rib fractures. No pneumothorax. Consolidation and ground-glass in the left upper lobe with volume loss, likely posttreatment changes. Difficult to exclude superimposed infection in the correct clinical setting. Mid esophageal mural thickening with surrounding inflammation, compatible with esophagitis, possibly secondary to recent vomiting. Small air-fluid level in the proximal esophagus puts the patient at increased risk for aspiration. 1.2 cm right thyroid nodule. Recommend routine thyroid ultrasound for further evaluation, if not previously performed. Please note that all CT scans at this facility use dose modulation, iterative reconstruction, and/or weight-based dosing when appropriate to reduce radiation dose to as low as reasonably achievable. Dictated by Carlos A Granados MD @ 12/28/2021 8:33:02 PM (Electronically Signed) Ordering Physician: Maylin Dale MD Date of Service: 12/30/21 Procedure(s): XR chest 1V portable Accession Number(s): [id number] cc: Maylin Dale MD; Provider,Not a Local ~ For Patients: As a result of the Century Cures Act, medical imaging exams and procedure reports are released immediately into your electronic medical record. You may view this report before your referring provider. If you have questions, please contact your health care provider. INDICATION: Worsening dyspnea and hypoxia. COMPARISON: December 25, 2021 TECHNIQUE: Portable AP semi-upright single-view study December 30, 2021 at 7:49 a.m. FINDINGS: TUBES AND LINES: None. HEART AND MEDIASTINUM: Heart size normal.. LUNGS AND PLEURAL SPACES: Parenchymal opacity projects from the left hilum to the lateral aspect of the left midlung and towards the left base. This is unchanged since the prior study and probably represents a treated malignancy.. There is pleural thickening on the left. The right lung and right pleural space remain normal OSSEOUS STRUCTURES: Age-appropriate appearance. No acute focal finding. 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 No new findings when compared to December 25, 2021 Dictated by Simon Anguiano MD @ 12/30/2021 8:08:30 AM (Electronically Signed) Labs on day of discharge: Labs from last 24 hours 12/31/21 12/30/21 12/29/21 08:29 13:10 04:30 VBG pH 7.369 VBG pCO2 46 VBG pO2 42.2 VBG HCO3 26 RBC Fol Farrah for Serum >22.3 Stl C.difficile Tox PCR Pending St C. diff Tox Epid 027 Pending Discharge Plan Discharge Disposition: [facility] Date of Admission: 12/28/21 23:51 Attending Provider on Discharge: Maylin Dale Primary Care Provider: Provider,Not a Local Condition: Stable Anticipated Discharge Date/Time: 12/31/21 13:00 Discharge Medications: New ertapenem 1 gram Recon Soln 1 g IVPB Q24H 10 Days Qty: 10 0RF sodium chloride 0.9 % (flush) [Normal Saline Flush] Syringe 5 ml IVF .FLUSH PRN10 Days Qty: 20 0RF omeprazole 20 mg capsule,delayed release(DR/EC) 20 mg PO DAILY Qty: 30 2RF prednisone 20 mg Tablet 40 mg PO DAILYWM Qty: 6 0RF Continued acetaminophen 500 mg capsule 500 mg PO Q6H PRN All Day Allergy (cetirizine) 10 mg capsule 10 mg PO DAILY PRN ferrous sulfate 325 mg (65 mg iron) tablet 325 mg PO DAILY furosemide 20 mg tablet 20 mg PO DAILY albuterol 90 mcg/actuation aerosol 108 mcg inhalation Q4H atorvastatin 40 mg tablet 40 mg PO QHS calcium carbonate 600 mg calcium (1,500 mg) tablet 600 mg PO DAILY fluoxetine 20 mg capsule 20 mg PO DAILY fluticasone propion-salmeterol [Advair Diskus] 250-50 mcg/dose blister with device 1 inh inhalation BID ipratropium-albuterol 0.5 mg-3 mg(2.5 mg base)/3 mL solution for nebulization 3 ml inhalation QID PRN Lactobacillus acidophilus Capsule 10 mg PO DAILY melatonin 3 mg capsule 3 mg PO HS PRN montelukast 10 mg tablet 10 mg PO DAILY ascorbic acid (vitamin C) 500 mg capsule, extended release 500 mg PO DAILY cholecalciferol (vitamin D3) 25 mcg (1,000 unit) capsule 25 mcg PO DAILY potassium chloride 20 mEq tablet extended release 40 meq PO DAILY aspirin [Adult Aspirin Regimen] 81 mg tablet,delayed release (DR/EC) 81 mg PO DAILY Held prednisone 10 mg tablet 10 mg PO DAILY Hold Instructions: Resume on 01/04/22. Discontinued atenolol 50 mg tablet 50 mg PO DAILY calcium carbonate-vitamin D3 600 mg-10 mcg (400 unit) capsule 1 cap PO DAILY lisinopril 20 mg tablet 20 mg PO DAILY lorazepam 0.5 mg tablet 0.5 mg PO BID PRN Discharge Orders: Discharge Order (Routine); Ordered 12/31/21 Ordered By: Maylin Dale Activity Level: Up with assist and Use Walker Discharge Diet: Low Fat/Low Cholesterol Follow Up Appointments: Valerie Huitron [Outside] - 12/31/21 Provider,Not a Local [Primary Care Provider] - Admit to: SNF Discharge Potential: Good Length of Stay: <30 days Can use facility standing orders?: Yes Code Status: Full Code TEDs: Bilateral Knee Rehab Potential: Good Therapy: Physical Therapy and Occupational Therapy Therapy Orders: Evaluate and Treat Oxygen: Yes Oxygen Delivery Method: Nasal Cannula Oxygen Flow Rate: 2 LPM Urinary Catheter: No Orders are good >30 days: No Signature: Maylin Dale MD
[2021-12-31 09:35] LABS: C.Difficile Negative (Negative); CDIFFEPI 027 PRESUMPTIVE NEGATIVE (Negative)
[2021-12-31 11:41] VITALS: BP 122/63; PULSE 85; RESP 16; TEMP 36.7; O2SAT 95
--- NOTE | 2021-12-31 12:10 | PC.NURSE ---
Report called to [facility]. Spoke with RN, Maddison. All questions answered. Will call with ETA once paperwork is complete.
--- NOTE | 2021-12-31 12:12 | PC.SOCIAL ---
Addendum entered by SÁNCHEZ Mcintosh 01/01/22 09:45: Well Control Instructor reviewed and agrees with this note. Original Note: Discharge planning: Pt. was accepted for admission to [facility] at [facility] living today before 3pm. Son will transport. Met with pt. and son to discuss insurance coverage and roommate arrangements at the facility, family is aware of covid patients in the facility. PAS completed #[id number].
--- NOTE | 2021-12-31 13:02 | PC.NURSE ---
Patient discharged to the [facility]. Tolerating a regular diet. Voiding without difficulty. LBM today- neg for Cdiff. PICC intact. Dressing due to be changed 01/02/22. Skin intact. Bruising to right buttock. TEDs in place. Assist of 1 and walker. Alert and oriented but is forgetful and somewhat impulsive. Vital signs within normal limits. On 2L Oxygen via nasal canula which is baseline. Son will be transporting as soon as paper work is complete. Has own portable oxygen concentrator. Son will provide [facility] with her vaccine card once she gets there. All questions answered. Waiting on paperwork. This will be faxed once it is complete. Report was called to Maddison at the [facility].
--- NOTE | 2021-12-31 13:34 | PC.NURSE ---
Left unit- called [facility]. son transporting
== END 2021-12-31 13:35 ==
LOC: ED 21:15 → MEDSURG 23:52
PROVIDERS: Family Medicine; Admitting Provider Family Medicine; Emergency Provider Emergency Medicine; Visit Provider Family Medicine
DX: I95.9 Hypotension, unspecified (principal); S22.49XA Multiple fractures of ribs, unspecified side, initial encounter for closed fracture; D53.9 Nutritional anemia, unspecified; I25.10 Atherosclerotic heart disease of native coronary artery without angina pectoris; K29.70 Gastritis, unspecified, without bleeding; J18.9 Pneumonia, unspecified organism; R53.1 Weakness; R53.81 Other malaise; R19.7 Diarrhea, unspecified; N18.30 Chronic kidney disease, stage 3 unspecified; Z99.81 Dependence on supplemental oxygen; I82.409 Acute embolism and thrombosis of unspecified deep veins of unspecified lower extremity; J44.1 Chronic obstructive pulmonary disease with (acute) exacerbation; E04.1 Nontoxic single thyroid nodule; R06.89 Other abnormalities of breathing; Z79.82 Long term (current) use of aspirin; R11.10 Vomiting, unspecified; R29.6 Repeated falls; Z87.891 Personal history of nicotine dependence
CPT/HCPCS: 36415; 71045; 71260; 80048; 80053; 80076; 82607; 82728; 82746; 82803; 83540; 83550; 83690; 84439; 84443; 85025; 85045; 85610; 86140; 87493; 87631; 93005; 94640; 94761; 96361; 96365; 96366; 96375; 96376; 97110; 97116; 97161; 97165; 97530; 97535; 99211; 99284; 99285; G0378; A9270; C9113; G0379; J1335; J2270; J2405; J7030; J7050; J7626; Q9967

== ENCOUNTER 2022-01-01 10:00 | Outpatient (RCR) | payer MEDICARE, OTHER, SELFPAY ==
[2021-12-19 11:21] VITALS: BP 117/74; PULSE 48; RESP 16; TEMP 36.6; O2SAT 99
[2021-12-19] MEDS: ALTEPLASE 2 MG INJ IVF (11:53)
[2021-12-19] MEDS: ERTAPENEM 1 GM in 0.9 % SODIUM CHLORIDE 100 ml 100 ML IVPB (12:37)
--- NOTE | 2021-12-19 16:51 | ONC.NURNOTE ---
Pt arrived for Ertapenem with PICC line. Pt states previous facility unable to draw blood off picc. RN did instill cathflo, after 30 min, RN able to obtain good blood return and flush well. During infusion pump alarming high pressure. PICC flushes well intermittently. Pt states this happens frequently and the nurses asked her to reposition her arm. Analyzer Sales changed picc line dressing, catheter did migrate out approx 1 cm, catheter was at 7cm upon arrival to [facility]. After dressing change, PICC line flushed without difficulty and with good blood return.
[2021-12-20 13:30] VITALS: BP 118/73; PULSE 60; RESP 16; TEMP 36.1; O2SAT 99
[2021-12-20] MEDS: ERTAPENEM 1 GM in 0.9 % SODIUM CHLORIDE 100 ml 100 ML IVPB (13:54)
[2021-12-21 13:00] VITALS: BP 94/37; PULSE 54; RESP 22; TEMP 36.2; O2SAT 100
[2021-12-21] MEDS: ERTAPENEM 1 GM in 0.9 % SODIUM CHLORIDE 100 ml 100 ML IVPB (13:21)
[2021-12-22 13:00] VITALS: BP 88/52; PULSE 55; RESP 22; TEMP 36.9; O2SAT 99
[2021-12-22] MEDS: SODIUM CHLORIDE 0.9 % (FLUSH) 10 ML SYRINGE IVF ×2 (13:00→14:15)
[2021-12-22] MEDS: ERTAPENEM 1 GM in 0.9 % SODIUM CHLORIDE Mini-bag 100 ML IVPB (13:08)
--- NOTE | 2021-12-22 15:41 | PC.NURSE ---
shift note: pt placed on bed due to difficulty with flushing picc line while sitting up in recliner. Good blood return with aspiration then flush. infusion intiated. vss stable.
[2021-12-23] MEDS: ERTAPENEM 1 GM in 0.9 % SODIUM CHLORIDE Mini-bag 100 ML IVPB (13:03)
[2021-12-23] MEDS: SODIUM CHLORIDE 0.9 % (FLUSH) 10 ML SYRINGE IVF (13:03)
[2021-12-23 13:06] VITALS: BP 110/47; PULSE 54; RESP 16; TEMP 36.8; O2SAT 100
[2021-12-23] MEDS: 0.9 % SODIUM CHLORIDE 250 ml IV (13:12)
--- NOTE | 2021-12-23 13:33 | ONC.NURNOTE ---
Meds entered. Uses [facility] in [place], [place] as patient recently moved here from there. Has not established new pharmacy yet.
[2021-12-24 11:04] VITALS: BP 100/63; PULSE 56; RESP 16; TEMP 36.4; O2SAT 99
[2021-12-24] MEDS: ERTAPENEM 1 GM in 0.9 % SODIUM CHLORIDE Mini-bag 100 ML IVPB (11:10)
[2021-12-24] MEDS: SODIUM CHLORIDE 0.9 % (FLUSH) 10 ML SYRINGE IVF (11:10)
[2021-12-24] MEDS: 0.9 % SODIUM CHLORIDE 250 ml IV (11:10)
[2021-12-25 10:15] VITALS: BP 88/56; PULSE 63
[2021-12-25] MEDS: ERTAPENEM 1 GM in 0.9 % SODIUM CHLORIDE Mini-bag 100 ML IVPB (10:57)
--- NOTE | 2021-12-25 11:06 | ONC.NURNOTE ---
Pt here today for Ertapenem. BP 89/46, HR 54. O2 sats 96% on 2 L NC. Pt states she started feeling poor yesterday afternoon. At that time, she started coughing more and had multiple emesis episodes throughout the night. Pt has also been having ongoing diarrhea. Pt also c/o dizziness and lightheadedness. Pt states she even fell this morning at home. Pt states she began having left upper abd pain last night, now rating pain 2/10. Pt agreeable to be evaluated in the Emergency room. Railway Head Tender called and spoke to Josephine RN with report, the ED advised [facility] to start the Ertapenem in [facility] until they are able to take the pt in the ED. Pt and her son verbalized understanding of plan of care.
[2021-12-26 10:08] VITALS: BP 86/57; PULSE 73; RESP 16; TEMP 36.9; O2SAT 97
[2021-12-26] MEDS: ERTAPENEM 1 GM in 0.9 % SODIUM CHLORIDE Mini-bag 100 ML IVPB (10:21)
[2021-12-26 11:05] VITALS: BP 103/63; PULSE 57
--- NOTE | 2021-12-26 11:34 | ONC.NURNOTE ---
Pt here for Ertapenem. Pt feels better after being seen in the ED, per pt the zofran they prescribed has helped with nausea. BP still hypotensive 86/57. Pt is currently on lisinopril, metoprolol, and furosemide. Message Broker Developer printed off all of pt's BP and pulse from the past week. Pt's son will notify pt's primary care provider in [place] to see what they recommend pt holding. Pt doesn't establish primary care here in [place] until next week. Pt to return tomorrow for her Ertapenem.
[2021-12-27 10:03] VITALS: BP 84/51; PULSE 51; RESP 16; TEMP 36.6; O2SAT 97
[2021-12-27] MEDS: ERTAPENEM 1 GM in 0.9 % SODIUM CHLORIDE Mini-bag 100 ML IVPB (10:12)
[2021-12-27] MEDS: 0.9 % SODIUM CHLORIDE 250 ml IV (10:13)
[2021-12-27 10:50] VITALS: BP 103/47; PULSE 57
[2021-12-27] MEDS: SODIUM CHLORIDE 0.9 % (FLUSH) 10 ML SYRINGE IVF (11:55)
--- NOTE | 2021-12-27 13:50 | ONC.NURNOTE ---
Pt here for Ertapenem. BP still hypotensive. 84/51, HR 51. Pt states she hasn't been drinking much fluids. Discussed with pt the importance of increasing her PO liquid intake. Pt unable to reach primary care provider yesterday regarding low BP due to clinic being closed with a snowstorm. Discussed BP with Merced Malagon APRN and she would like pt to try to get a hold of primary care provider again or to contact MD carbon coater machine operator. Recheck BP prior to discharge today 103/47.
[2021-12-28 09:45] VITALS: BP 94/40; PULSE 68; RESP 16; TEMP 36.7; O2SAT 96
[2021-12-28 09:58] VITALS: BP 94/40; PULSE 68; RESP 16; TEMP 36.7; O2SAT 96
[2021-12-28] MEDS: ERTAPENEM 1 GM in 0.9 % SODIUM CHLORIDE Mini-bag 100 ML IVPB (10:16)
[2021-12-28] MEDS: SODIUM CHLORIDE 0.9 % (FLUSH) 10 ML SYRINGE IVF (10:17)
[2021-12-28] MEDS: 0.9 % SODIUM CHLORIDE 250 ml IV (10:19)
--- NOTE | 2021-12-28 11:35 | PC.NURSE ---
shift note: pt picc line flushed and aspirated w/o resistance. good blood return on aspiration. Pt tolerated infusion w/o s/e. Picc flushed and aspirated again at dc w/o resistance. Good blood return on aspiration. Picc site intact & dry. Pt dc'd at 1123
--- NOTE | 2022-01-01 07:47 | ONC.NURNOTE ---
Pt discharged to halfway from [facility] on 12/31/21. Pt taken off infusion schedule for Ertapenem.
== END 2022-06-17 23:59 | disposition home or self-care (01) ==
LOC: CCIC 10:00
PROVIDERS: PCP Clinical Nurse Specialist; Referring Provider Clinical Nurse Specialist; Visit Provider Clinical Nurse Specialist
DX: J86.9 Pyothorax without fistula (principal)
CPT/HCPCS: 96365; 96376; 99211; A4221; J1335; J2997; J7050